=== PATIENT | female | born 1975 | race Caucasian/White ===

== ENCOUNTER 2016-05-15 14:52 | Emergency (ER) | payer BC ==
[~2016-05-15] VITALS: Ht 160 cm; Wt 101.2 kg
[~2016-05-15 14:52] MED LIST: ACET325T51 PO; DIPH28.33 TOP; FLUO20CA30 PO; GABA-336 PO; IBUP-1724 PO; METF500T4 PO; OMEP-122 PO; OXYC1TAB8 PO
[2016-05-15 14:55] VITALS: TEMP 98; Ht 160 cm; Wt 101.2 kg
--- OUTSIDE RECORDS SUMMARY | 2016-05-15 14:57 | XMS REPORT | Continuity of Care Document ---
Author Author [facility] Organization [facility] Address Unknown Phone Unavailable Care Team Providers Care Manager Games Name Role Phone LAUREN VALLE MD PP Unavailable Insurance Providers Payer Name Policy Number Subscriber Name Relationship [facility] [id number] Mariah Tinajero July [birth year] Self Problems No Known Problems or Medical conditions. Family History History Response Recorded Date/Time HX of Orthopedic Surgeries CYST REMOVED RT HAND 09/26/12 10:25pm Hx Abdominal Surgery Y HYST 09/26/12 10:25pm HX Cerebrovascular Accident N 09/26/12 10:25pm Hx Seizures N 09/26/12 10:25pm Hx Angina N 09/26/12 10:25pm Hx Congestive Heart Failure N 09/26/12 10:25pm Hx Heart Attack N 09/26/12 10:25pm Hx Hypertension N 09/26/12 10:25pm Hx Rheumatic Fever N 09/26/12 10:25pm Hx Chronic Obstructive Pulmonary Disease (COPD) N 09/26/12 10:25pm Hx Diabetes N 09/26/12 10:25pm Hx Cancer Y CERVICAL 09/26/12 10:25pm Hx MRSA N 09/26/12 10:25pm HX of Reproductive Surgeries VAG HYSTERECTOMY,BOTH OVARIES REMOVED AFTER THEY BURST 09/26/12 10:25pm HX of Throat Surgery Y [id number] 09/26/12 10:25pm Neurological concussion 05/31/12 2:13pm Social History History Response Recorded Date/Time Smoking Status Never smoker 09/26/12 10:25pm Hx Substance Use N 09/26/12 10:25pm Hx Alcohol Use 2 PER MONTH-NONE RECENTLY 09/26/12 10:25pm Allergies, Adverse Reactions, Alerts Allergen Type Severity Reaction Last Updated Procaine Allergy Unknown 05/28/12 Medications Medication Dose Units Route Sig Qty Days Ibuprofen PRN Acetaminophen/Codeine Phosphate (Tylenol #3) HS Sulfamethoxazole/Trimethoprim (Bactrim Ds) 2 Tab PO BID Green Tea [place] Extract (Green Tea) 1 Cap PO [Ph Balance Med] Immunizations Name Given Type Hx Influenza Vaccination N H Hx Pneumococcal Vaccination N H Hx Tetanus, Diptheria, Pertussis Y 2010 H Response Recorded Date/Time Status not known Unknown Results No Known Relevant Diagnostic Tests, Laboratory Data and/or Discharge Summary. 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
--- OUTSIDE RECORDS SUMMARY | 2016-05-15 14:58 | XMS REPORT | Continuity of Care Document ---
Author Author [facility] Organization [facility] Address Unknown Phone Unavailable Support Name Relationship Address Phone SAMM TANG Caregiver [address] [place] [address] Unavailable RICK LIVINGSTON MD Caregiver [address] [place] [address] Unavailable LEILA, JENNIFER A Next Of Kin [address] [place] [address] Insurance Providers Guarantor Mariah Tinajero Address [address] [place] [address] Email [email or web address] Payer [facility] Policy Number [id number] Subscriber's Name Mariah Tinajero Relationship 18 Self Group Number [id number] Advance Directives Directive Response Recorded Date/Time Advanced Directives Type None 08/31/13 8:15pm Chief Complaint and Reason for Visit Chief Complaint Skin Rash/Abscess Reason for Visit Rash Hives Problems Active Problems Medical Problem Onset Date Status Abdominal pain Unknown Acute Abdominal pain Unknown Acute Abrasion Unknown Acute Ankle sprain Unknown Acute Ankle sprain Unknown Acute Atypical chest pain Unknown Acute Cellulitis of hand Unknown Acute Contusion of forearm, right Unknown Acute Contusion of right hand including fingers Unknown Acute Contusion of right hand including fingers Unknown Acute Facial pain, acute Unknown Acute Foot sprain Unknown Acute Hand injury Unknown Acute Intercostal myalgia Unknown Acute KNEE SPRAIN Unknown Acute Laryngitis Unknown Acute Lumbar back pain Unknown Acute Lumbar back pain Unknown Acute Paraspinal muscle spasm Unknown Acute Paraspinal muscle spasm Unknown Acute Paraspinal muscle spasm Unknown Acute Sprain of elbow, right Unknown Acute Sprain of right thumb Unknown Acute Strain of calf muscle Unknown Acute Stress response Unknown Acute Wound cellulitis Unknown Acute Past Problems Medical Problem Onset Date Acute pharyngitis Unknown Contusion of right thigh Unknown Elbow contusion Unknown First degree burn of right thigh Unknown Fracture of fifth metacarpal bone of right hand Unknown Hand pain Unknown Hives Unknown Infection of mouth Unknown Injury of right little finger Unknown Lymphadenopathy of head and neck Unknown Post-op pain Unknown Rash Unknown Medications Current Home Medications Medication Dose Units Route Directions Days Qty Instructions Start Date Acetaminophen 325 Mg Tablet 650 Mg Oral Every 6 Hours as needed for Pain 12/10/15 Diphenhydramine Hcl/Zinc Acet (Benadryl Itch Stopping Crm) 28 Applic/28.3 G Cr 1 Applic Topically Three Times A Day as needed for Itching Fluoxetine Hcl (Prozac) 20 Mg Capsule 20 Mg Oral Daily 10/22/15 Gabapentin 100 Mg Capsule 200 Mg Oral Bedtime 12/16/15 Ibuprofen 200 Mg Tablet 600 Mg Oral Every 6 Hours as needed for Pain 12/10/15 Metformin Hcl 500 Mg Tablet 500 Mg Oral Twice Daily With Meals Omeprazole 20 Mg Tablet.dr 20 Mg Oral Before Breakfast 12/10/15 Oxycodone Hcl/Acetaminophen (Percocet 5-325 Mg Tablet) 5-325 Tablet 5-10 Mg Oral Every 4-6 Hours 60 Tablet 11/05/15 Past Home Medications Medication Directions Ordered Status Acetaminophen 500 Mg Tablet, 2 Tab Oral Every 8 Hours 03/12/15 Discontinued Acetaminophen (Tylenol Extra Strength) 500 Mg Tablet, 500 Mg Oral As Needed 11/04/09 Discontinued Acetaminophen/Codeine Phosphate (Tylenol #3) 1 Tab Tablet, Bedtime 12/19/10 Discontinued Azithromycin (Zithromax) 500 Mg Tablet, 1 Tab Oral Daily 10/08/15 Discontinued Cephalexin Monohydrate (Keflex) 250 Mg Capsule, 08/09/08 Discontinued Doxycycline Monohydrate (Doxycycline) 150 Mg Tablet, 150 Mg Peg Tube Twice A Day 07/10/08 Discontinued Fluoxetine Hcl 20 Mg Capsule, 20 Mg Oral Daily 08/22/15 Discontinued Green Tea [place] Extract (Green Tea) 1 Cap Capsule, 1 Cap Oral 12/15/10 Discontinued Hydrocodone Bit/Acetaminophen ([place] 5/325 Tablet) 1 Tab Tablet, 1 Tab Oral Every 4-6 Hours as needed for Pain 09/01/13 Discontinued Hydrocodone/Acetaminophen (Hydrocodon-Acetaminophen 5-325) 5-325 Tablet, 1-2 Tab Oral Every 6 Hours as needed for Pain 08/22/15 Discontinued Hydrocodone/Acetaminophen ([place] 5-325 Tablet) 1 Each Tablet, 1 Tab Oral Every 4-6 Hours as needed for Pain 11/14/13 Discontinued Ibuprofen 200 Mg Tablet, 2 Tab Oral Every 4 Hours as needed for Pain Discontinued Ibuprofen 200 Mg Capsule, 800 Mg Oral As Needed 11/04/09 Discontinued Ibuprofen 600 Mg Tablet, 600 Mg Oral Three Times A Day 07/10/08 Discontinued Metformin Hcl 500 Mg Tablet, 1000 Mg Oral Twice Daily With Meals 08/22/15 Discontinued No Home Meds , 10/08/15 Discontinued Ondansetron (Zofran Odt) 4 Mg/Udtablet Tab.rapdis, 1 Tab Sublingual As Needed 01/30/08 Discontinued Oxycodone Hcl/Acetaminophen (Oxycodone-Apap 7.5-325 Mg Tab) 1 Tab Tablet, 1 Tab Oral Q 4 H 01/30/08 Discontinued Pantoprazole Sodium 40 Mg Tablet.dr, 800 Mg Oral Before Breakfast 08/22/15 Discontinued Ph Balance Med , 12/15/10 Discontinued Phentermine Hcl 37.5 Mg Capsule, 1 Cap Oral Every Morning 08/22/15 Discontinued Promethazine Hcl (Phenergan) 25 Mg/Supp.rect Supp.rect, 1 Supp Rectally As Needed 01/30/08 Discontinued Sulfamethoxazole/Trimethoprim (Bactrim Ds) 1 Tab Tablet, 2 Tab Oral Twice A Day 12/19/10 Discontinued Social History Social History Problem Response Recorded Date/Time Onset Date Status Chewing Tobacco Status No 08/31/2013 8:26pm Not Applicable Not Applicable Hx Substance Use No 12/16/2015 10:12pm Not Applicable Not Applicable Hx Alcohol Use No 12/16/2015 10:12pm Not Applicable Not Applicable Has the pt used tobacco in the last 12 months No 11/04/2015 9:52am Not Applicable Not Applicable Tobacco Usage none 09/01/2013 12:40am Not Applicable Not Applicable Query Response Start Date Stop Date Smoking Status Never smoker Hospital Discharge Instructions No hospital discharge instructions. Plan of Care Discharge Date 12/16/15 11:44pm Disposition 01 DISCHARGED HOME, SELF-CARE Condition at Discharge Improved Instructions/Education Provided DI for Hives Prescriptions See Medication Section Referrals SAMM TANG Address: [address] [place] [address] Additional Instructions/Education Benadryl 50 mg 4 times daily as needed for rash or itching Discussed medications with your doctor later this week or early next week. Care Plan and Goals Physician Care Plan Problem: Rash/hives Goal: Follow up with primary care provider Instructions: Take medications and follow care plan as discussed/written Erythromycin ophthalmic ointment, apply 1/2 inch at the edge of the right eye lid 4 times daily for one week Return or see your primary physician for any worsening, Functional Status No functional status results. Allergies, Adverse Reactions, Alerts Allergen Type Severity Reaction Status Last Updated Procaine Adverse Reaction Mild WEARS OFF SLOW Active 12/16/15 Immunizations Query Response on File Recorded Date/Time Hx Influenza Vaccination No 11/04/15 9:52am Hx Pneumococcal Vaccination No 11/04/15 9:52am Hx Tetanus, Diptheria, Pertussis Y 201010/16/14 8:48pm Hx Influenza Vaccination No 11/04/15 9:52am Hx Tetanus, Diptheria, Pertussis Y 201010/16/14 8:48pm Hx Tetanus Toxoid Vaccination NOT ASSESSED, NO OPEN AREAS 10/16/14 8:48pm Influenza Vaccine Hx DOESN'T RECEIVE 12/16/15 10:12pm Tdap Vaccine Hx NO BROKEN SKIN 12/10/15 2:43pm Vital Signs Acute Vital Signs Vital Response Date/Time Temperature (Fahrenheit) 97.1 deg F (96.8 - 99.1) 12/10/2015 4:06pm Temperature (Calculated Celsius) 36.63318 degrees C (36.0 - 37.3) 12/10/2015 4:06pm Temperature Source Oral 11/05/2015 7:33am Pulse Rate (adult) 72 bpm (60 - 100) 12/10/2015 4:06pm Respiratory Rate 16 breaths/min (10 - 20) 12/10/2015 4:06pm O2 Sat by Pulse Oximetry 98 % (90 - 100) 12/10/2015 4:06pm Oxygen Delivery Method Room Air 11/05/2015 7:33am Oxygen Delivery Method Room Air 11/04/2015 3:35pm Blood Pressure 128/76 mm Hg 12/10/2015 4:06pm Blood Pressure Source Automatic Cuff 11/05/2015 7:33am Height (Feet) 5 feet 12/10/2015 2:28pm Height (Inches) 3.00 inches 12/10/2015 2:28pm Weight (Kilograms) 92.500 kg 12/10/2015 2:28pm Body Mass Index (BMI) 36.0 12/10/2015 2:28pm Results Laboratory Results Test Name Result Units Flags Reference Collection Date/Time Result Date/ Time Comments Group A Streptococcus Screen NEGATIVE NEGATIVE 10/08/2015 10:59pm 11:10pm Strep culture confirmation to follow Microbiology Results Procedure Source Organism/Result Collection Date/Time Result Date/Time Result Status Group A Streptococcus Culture Throat NO GROUP A STREP ISOLATED 10/08/2015 11:10pm 10/11/2015 6:14am Final Procedures Procedure Status Date Provider(s) CULTURE SCREEN ONLY Completed 10/08/15 STREP A AG IA Completed 10/08/15 THER/PROPH/DIAG INJ SC/IM Completed 10/08/15 EMERGENCY DEPT VISIT Completed 10/08/15 786494"INJECTION, METHYLPREDNISOLONE ACETATE, 80 MG" Completed 10/08/15 EMERGENCY DEPT VISIT Completed 10/21/15 APPLY FOREARM SPLINT Completed 11/01/15 RICK LIVINGSTON MD X-RAY EXAM OF HAND Completed 11/01/15 EMERGENCY DEPT VISIT Completed 11/01/15 TREAT METACARPAL FRACTURE Completed 11/04/15 JUSTIN HUTCHISON MD X-RAY EXAM OF HAND Completed 11/04/15 X-RAY EXAM OF HAND Completed 11/04/15 FLUOROSCOPE EXAMINATION Completed 11/04/15 366856"16 SQ. IN. OR LESS, WITHOUT ADHESIVE BORDER, EACH ERIK Completed 669995"INJECTION, HYDROMORPHONE, UP TO 4 MG" Completed 11/04/15 850200"INJECTION, LORAZEPAM, 2 MG" Completed 11/04/15 PROPOFOL INJ 500 MG/50ML Completed 11/04/15 515995"INJECTION, METOCLOPRAMIDE HCL, UP TO 10 MG" Completed 11/04/15 653786"INJECTION, FENTANYL CITRATE, 0.1 MG" Completed 11/04/15 919473"INJECTION, FENTANYL CITRATE, 0.1 MG" Completed 11/04/15 021020"INFUSION, NORMAL SALINE SOLUTION , 1000 CC" Completed 11/04/15 165128"RINGERS LACTATE INFUSION, UP TO 1000 CC" Completed 11/04/15 APPLY FOREARM SPLINT Completed 11/12/15 MARY MÉNDEZ MD EMERGENCY DEPT VISIT Completed 11/12/15 X-RAY EXAM OF ELBOW Completed 11/25/15 EMERGENCY DEPT VISIT Completed 11/25/15 X-RAY EXAM OF HAND Completed 12/10/15 EMERGENCY DEPT VISIT Completed 12/10/15 Encounters Encounter Location Arrival/Admit Date Discharge/Depart Date Attending Provider Departed Emergency Room [facility] 12/16/15 8:59pm 12/16/15 11: 44pm RICK LIVINGSTON MD Departed Emergency Room [facility] 12/10/15 2:20pm 12/10/15 4: 03pm SHAUN MONDRAGON MD Departed Emergency Room [facility] 11/25/15 10:00pm 11/25/15 11: 15pm JUNEEVE DO Departed Emergency Room [facility] 11/12/15 12:06am 11/12/15 1: 08am MARY MÉNDEZ MD Departed [facility] Day Care [facility] 11/04/15 8:59am 11/05/15 12 :00pm JUSTIN HUTCHISON MD Departed Emergency Room [facility] 11/01/15 10:07pm 11/02/15 12: 05am RICK LIVINGSTON MD Departed Emergency Room [facility] 10/21/15 11:43pm 10/22/15 12: 50am RICK LIVINGSTON MD Departed Emergency Room [facility] 10/08/15 9:45pm 10/08/15 11: 46pm MARY MÉNDEZ MD Recent Diagnosis
--- OUTSIDE RECORDS SUMMARY | 2016-05-15 14:58 | XMS REPORT | Continuity of Care Document ---
Author Author [facility] Organization [facility] Address Unknown Phone Unavailable Support Name Relationship Address Phone HIRA MEJIA MD Caregiver [address] [place] [phone] MARY MÉNDEZ MD Caregiver [address] [place] [address] [place] [phone] JENNIFER DEE Next Of Kin [address] [place] [address] Insurance Providers Payer Name Policy Number Subscriber Name Relationship [facility] [id number] Mariah Tinajero 18 Self Advance Directives Directive Response Recorded Date/Time Advanced Directives Type None 08/31/13 8:15pm Problems Medical Problems Problem Onset Date Status KNEE SPRAIN Unknown Active Abdominal pain Unknown Active Abdominal pain Unknown Active Contusion of right hand including fingers Unknown Active Contusion of right hand including fingers Unknown Active Medications Medication Dose Route Sig Days/Qty Instructions Order Date Discontinued Date Status Oxycodone Hcl/Acetaminophen 1 Tab PO Q 4 H 01/30/08 04/14/08 Discontinued Promethazine Hcl 1 Supp RECTALLY NEEDED 01/30/08 04/14/08 Discontinued Ondansetron 1 Tab SL NEEDED 01/30/08 04/14/08 Discontinued Doxycycline Monohydrate 150 Mg PEG TWICE A DAY 07/10/08 08/02/08 Discontinued Ibuprofen 600 Mg PO THREE TIMES A DAY 07/10/08 10/03/09 Discontinued Acetaminophen 500 Mg PO NEEDED 11/04/09 05/11/10 Discontinued Cephalexin Monohydrate 08/09/08 10/03/09 Discontinued Ibuprofen 800 Mg PO NEEDED 11/04/09 05/11/10 Discontinued [Ph Balance Med] 12/15/10 05/28/12 Discontinued Green Tea [place] Extract 1 Cap PO 12/15/10 05/28/12 Discontinued Sulfamethoxazole/Trimethoprim 2 Tab PO TWICE A DAY 12/19/10 Discontinued Acetaminophen/Codeine Phosphate BEDTIME 12/19/10 05/28/12 Discontinued Ibuprofen PRN 09/26/12 Active Omeprazole Mg PO BEFORE BREAKFAST PRN INDIGESTION 08/31/13 Active Hydrocodone Bit/Acetaminophen 1 Tab PO EVERY 4-6 HOURS PRN PAIN 10 Qty 09/01/13 Active Prochlorperazine Maleate 10 Mg PO Every 8 Hours PRN NAUSEA 15 Qty 09/01 Active Tramadol HCl 1 Tab PO Every 6 Hours For PAIN 30 Qty 09/14/13 Active Social History Social History Problem Response Recorded Date/Time Smoking Status Never smoker 08/31/2013 8:26pm Chewing Tobacco Status No 08/31/2013 8:26pm Hx Substance Use No 09/14/2013 1:36am Hx Alcohol Use Y 2 PER MONTH-NONE RECENTLY 09/14/2013 1:36am Query Response Start Date Stop Date Smoking Status Never smoker Hospital Discharge Instructions No hospital discharge instructions. Plan of Care No plan of care. Functional Status Query Response Date Recorded Physical Hygiene Self September 14, 2013 1:36am Disabilities None August 31, 2013 8:26pm Devices Used None September 14, 2013 1:36am Dressing Self September 14, 2013 1:36am Ambulation Self September 14, 2013 1:36am Diet Self September 14, 2013 1:36am Mental Status Alert September 01, 2013 1:14am Disabilities None August 31, 2013 8:26pm Devices Used None September 14, 2013 1:36am Physical Hygiene Self September 14, 2013 1:36am Dressing Self September 14, 2013 1:36am Ambulation Self September 14, 2013 1:36am Diet Self September 14, 2013 1:36am Allergies, Adverse Reactions, Alerts Allergen Type Severity Reaction Status Last Updated Procaine Allergy Unknown Active 09/14/13 Immunizations Name Given Type Hx Influenza Vaccination No Historical Hx Pneumococcal Vaccination No Historical Hx Tetanus, Diptheria, Pertussis Y 2010 Historical Hx Influenza Vaccination No Historical Hx Tetanus, Diptheria, Pertussis Y 2010 Historical Hx Tetanus Toxoid Vaccination NOT ASSESSED, NO OPEN AREAS Historical Vital Signs Acute Vital Signs Vital Response Date/Time Temperature (Fahrenheit) 97.8 deg F (96.8 - 99.1) Temperature (Calculated Celsius) 36.35430 degrees C (36.0 - 37.3) Pulse Rate (adult) 80 bpm (60 - 100) Respiratory Rate 16 breaths/min (10 - 20) O2 Sat by Pulse Oximetry 97 % (90 - 100) Blood Pressure 128/78 mm Hg Height 5 ft 3 in Weight 232 lb Body Mass Index 41.0 kg/m^2 Results Test Source Date Result Interp. Ref. Range Comments Alanine Aminotransferase (ALT/SGPT) August 31, 2013 8:38pm 32 U/L N 9-52 Albumin August 31, 2013 8:38pm 3.9 G/DL N 3.5-5.0 Albumin/Globulin Ratio August 31, 2013 8:38pm 1.3 RATIO N 1.1-2.2 Alkaline Phosphatase August 31, 2013 8:38pm 153 U/L H 38-126 Amylase Level August 31, 2013 8:38pm 52 U/L N 30-110 Anion Gap August 31, 2013 8:38pm 12 MEQ/L N 5-15 Aspartate Amino Transf (AST/SGOT) August 31, 2013 8:38pm 20 U/L N 14-36 BUN/Creatinine Ratio August 31, 2013 8:38pm 19 RATIO N 6-26 Basophils # (Auto) August 31, 2013 8:38pm 0.0 T/MM3 N 0-0.2 Basophils (%) (Auto) August 31, 2013 8:38pm 0.4 % N 0-2 Blood Urea Nitrogen August 31, 2013 8:38pm 15.0 MG/DL N 7-17 Calcium Level August 31, 2013 8:38pm 9.3 MG/DL N 8.4-10.2 Calculated Osmolality August 31, 2013 8:38pm 282 MOSM/KG H 261-280 Carbon Dioxide Level August 31, 2013 8:38pm 26 MEQ/L N 22-30 Chloride Level August 31, 2013 8:38pm 108 MEQ/L H 98-107 Cholesterol Level December 21, 2010 8:20am 176 MG/DL N 132-199 Cholesterol/HDL Ratio December 21, 2010 8:20am 3.6 RATIO N 0-4.0 Conjugated Bilirubin February 13, 2010 10:50pm 0.00 MG/DL N 0.00-0.30 Creatinine August 31, 2013 8:38pm 0.8 MG/DL N 0.7-1.2 Eosinophils # (Auto) August 31, 2013 8:38pm 0.4 T/MM3 N 0-0.5 Eosinophils (%) (Auto) August 31, 2013 8:38pm 3.5 % N 0-4 Erythrocyte Sedimentation Rate December 19, 2010 12:25pm 13 MM/HR N 0-20 Globulin August 31, 2013 8:38pm 2.9 G/DL N 2.4-3.6 Glucose Level August 31, 2013 8:38pm 106 MG/DL N 65-110 Group A Streptococcus Screen November 14, 2007 9:37pm Negative - Strep culture confirmation to follow Hematocrit August 31, 2013 8:38pm 41.1 % N 36-46 Hemoglobin August 31, 2013 8:38pm 13.6 GM/DL N 12-16 LDL Cholesterol, Calculated December 21, 2010 8:20am 114.6 N 66-159 Lipase August 31, 2013 8:38pm 106 U/L N 23-300 Lymphocytes # (Auto) August 31, 2013 8:38pm 3.8 T/MM3 N 1-4.8 Lymphocytes (%) (Auto) August 31, 2013 8:38pm 37.7 % N 23-45 Mean Corpuscular Hemoglobin August 31, 2013 8:38pm 28.7 UUG N 26-34 Mean Corpuscular Hemoglobin Concent August 31, 2013 8:38pm 33.1 GM/DL N 31 -37 Mean Corpuscular Volume August 31, 2013 8:38pm 86.7 UM3 N 80-100 Mean Platelet Volume August 31, 2013 8:38pm 9.4 UM3 N 9.4-12.4 Monocytes # (Auto) August 31, 2013 8:38pm 0.7 T/MM3 N 0-0.8 Monocytes (%) (Auto) August 31, 2013 8:38pm 6.8 % N 0-9.0 Monoscreen February 13, 2010 10:50pm Negative - Neutrophils # (Auto) August 31, 2013 8:38pm 5.2 T/MM3 N 1.8-7.7 Neutrophils (%) (Auto) August 31, 2013 8:38pm 51.5 % N 33-66 Platelet Count August 31, 2013 8:38pm 392 T/MM3 N 130-400 Potassium Level August 31, 2013 8:38pm 3.4 MEQ/L L 3.6-5 RDW Standard Deviation August 31, 2013 8:38pm 42.3 FL N 36.9-50.2 Red Blood Count August 31, 2013 8:38pm 4.74 M/MM3 N 4.00-5.20 Sodium Level August 31, 2013 8:38pm 146 MEQ/L H 134-144 Thyroid Stimulating Hormone (TSH) December 21, 2010 8:20am 2.07 MIU/L N 0.47-4.68 Total Bilirubin August 31, 2013 8:38pm < 0.10 MG/DL L 0.20-1.30 Total Protein August 31, 2013 8:38pm 6.8 G/DL N 6.3-8.2 Triglycerides Level December 21, 2010 8:20am 62 MG/DL N 35-135 Troponin I April 14, 2008 11:52pm 0.008 ng/ml N 0-0.12 Unconjugated Bilirubin February 13, 2010 10:50pm 0.15 MG/DL N 0.00-1.10 Urine Bacteria July 25, 2008 10:44pm 2+ - Has specimen been collected /obtained? Y Urine Bilirubin August 31, 2013 8:50pm Negative - Has specimen been collected/obtained? Y Urine Blood August 31, 2013 8:50pm Trace-intact H - Has specimen been collected/obtained? Y Urine Collection Type August 31, 2013 8:50pm Voided-not cc-midstr - Has specimen been collected/obtained? Y Urine Color August 31, 2013 8:50pm Yellow - Has specimen been collected /obtained? Y Urine Culture Indicated July 25, 2008 10:44pm Cult set up - Has specimen been collected/obtained? Y Urine Glucose (UA) August 31, 2013 8:50pm Negative - Has specimen been collected/obtained? Y Urine Ketones August 31, 2013 8:50pm Negative - Has specimen been collected/obtained? Y Urine Leukocyte Esterase August 31, 2013 8:50pm Negative - Has specimen been collected/obtained? Y Urine Nitrite August 31, 2013 8:50pm Negative - Has specimen been collected/obtained? Y Urine Protein August 31, 2013 8:50pm Negative - Has specimen been collected/obtained? Y Urine RBC July 25, 2008 10:44pm 50-200 /HPF - Has specimen been collected/obtained? Y Urine Specific [place] August 31, 2013 8:50pm >=1.030 H - Has specimen been collected/obtained? Y Urine Turbidity August 31, 2013 8:50pm Sl cloudy - Has specimen been collected/obtained? Y Urine Urobilinogen August 31, 2013 8:50pm 0.2 EU/DL - Has specimen been collected/obtained? Y Urine WBC July 25, 2008 10:44pm 50-200 /HPF - Has specimen been collected/obtained? Y Urine pH August 31, 2013 8:50pm 5.5 - Has specimen been collected/ obtained? Y VLDL Cholesterol December 21, 2010 8:20am 12.4 MG/DL N 0-28 White Blood Count August 31, 2013 8:38pm 10.0 T/MM3 N 4.5-11.0 Chemistry Specimen Hemolysis August 31, 2013 8:38pm < 15 0-25 0-25: No Hemolysis.26-70: Slight Hemolysis - can falsely elevate K and Urine Protein. 71-285: Moderate Hemolysis - can falsely elevate K, Troponin I, CA 19-9, PTH, CSF GLucose, and Urine Protein, and can falsely decrease Phenytoin. 286-999: Gross Hemolysis - can falsely elevate K, Troponin I, CA 19-9, PTH, CSF Glucose, and Urine Protine, and can falsely decrease Phenytoin. Recommend specimen recollection. Urinalysis Comment August 31, 2013 8:50pm Microscopic not ind. - Has specimen been collected/obtained? Y Lab Scanned Report March 21, 2013 9:47pm LAB TEST FORM REQUEST [id number] - EKG July 10, 2008 12:57pm Complete - HDL Cholesterol Direct December 21, 2010 8:20am 49 MG/DL N 40-60 Turbidity August 31, 2013 8:38pm < 20 0-20 Glomerular Filtration Rate Calc August 31, 2013 8:38pm 81 - Immature Granulocyte # (Auto) August 31, 2013 8:38pm 0.01 T/MM3 N 0.00- 0.03 Immature Granulocyte % (Auto) August 31, 2013 8:38pm 0.1 % N 0.0-0.5 Icterus Index August 31, 2013 8:38pm < 2 0-7 Urine Microscopic Not Indicated February 13, 2010 11:20pm Not indicated - Has specimen been collected/obtained? Y Group A Streptococcus Culture Throat November 14, 2007 9:56pm Urine Culture Urine, Clean Catch Voided July 25, 2008 11:14pm Escherichia Coli Name: MARIAH TINAJERO Unit #: [id number] : 1975 Sex: F Loc / Svc: ED DOS: 08/31/13 Signed Report #: [id number] DIAGNOSTIC IMAGING REPORT TYPE OF EXAM: ABDOMEN ACUTE (INC. CHEST) Dictated By: SAM ECHEVERRIA MD INDICATION: ITS.REASON: abdominal pain ^abdominal pain COMPARISON: none. ABDOMEN ACUTE (INC. CHEST): Negative findings on the CXR. Abdomen images have nonspecific bowel gas pattern, but no evidence of a bowel obstruction. There surgical clips in RUQ. Minor pelvic calcifications are consistent with phleboliths. IMPRESSION: No evidence of acute disease. . Procedures Procedure Status Date Provider(s) THER/PROPH/DIAG INJ IV PUSH completed 08/31/13 HYDRATE IV INFUSION ADD-ON completed 08/31/13 TX/PRO/DX INJ NEW DRUG ADDON completed 08/31/13 TX/PRO/DX INJ NEW DRUG ADDON completed 08/31/13 TX/PRO/DX INJ NEW DRUG ADDON completed 08/31/13 TX/PRO/DX INJ NEW DRUG ADDON completed 08/31/13 TX/PRO/DX INJ SAME DRUG MARINE REPORTER completed 08/31/13 TX/PRO/DX INJ SAME DRUG MARINE REPORTER completed 08/31/13 TX/PRO/DX INJ SAME DRUG MARINE REPORTER completed 08/31/13 Encounters Encounter Location Date/Time Registered Emergency Room [facility] 09/14/13 1:20am Departed Emergency Room [facility] 08/31/13 8:07pm Recent Diagnosis
--- OUTSIDE RECORDS SUMMARY | 2016-05-15 14:59 | XMS REPORT | Continuity of Care Document ---
Author Author [facility] Organization [facility] Address Unknown Phone Unavailable Support Name Relationship Address Phone HIRA MEJIA MD Caregiver [address] [place] [phone] MARY MÉNDEZ MD Caregiver [address] [place] [address] [place] [phone] JENNIFER DEE Next Of Kin [address] [place] [address] Insurance Providers Payer Name Policy Number Subscriber Name Relationship [facility] [id number] Mariah Tinajero 18 Self Advance Directives Directive Response Recorded Date/Time Advanced Directives Type None 08/31/13 8:15pm Problems Medical Problems Problem Onset Date Status KNEE SPRAIN Unknown Active Abdominal pain Unknown Active Abdominal pain Unknown Active Contusion of right hand including fingers Unknown Active Contusion of right hand including fingers Unknown Active Ankle sprain Unknown Active Abrasion Unknown Active Ankle sprain Unknown Active Medications Medication Dose Route Sig [...] Balance Med] 12/15/10 05/28/12 Discontinued Green Tea [place] Extract 1 Cap PO 12/15/10 05/28/12 Discontinued [...] Hours For PAIN 30 Qty 09/14/13 Active Hydrocodone/Acetaminophen 1-2 Tab PO Every 6 Hours PRN PAIN 10 Qty Active Cephalexin 1 Cap PO FOUR TIMES DAILY 20 Qty 11/12/13 Active Social History Social History Problem Response [...] 1:36am Disabilities None August 31, 2013 8:26pm Mental Status Alert September 01, 2013 1:14am Disabilities None August 31, 2013 8:26pm Physical Hygiene Self September 14, 2013 1:36am Allergies, Adverse Reactions, Alerts Allergen Type Severity Reaction Status Last Updated Procaine Allergy Unknown Active 11/12/13 Immunizations Name Given Type Hx Influenza Vaccination No Historical Hx Pneumococcal Vaccination No Historical Hx Tetanus, Diptheria, Pertussis Y 2010 Historical Hx Influenza Vaccination No Historical Hx Tetanus, Diptheria, Pertussis Y 2010 Historical Hx Tetanus Toxoid Vaccination NOT ASSESSED, NO OPEN AREAS Historical Vital Signs Acute Vital Signs Vital Response Date/Time Temperature (Fahrenheit) 99.1 deg F (96.8 - 99.1) Temperature (Calculated Celsius) 37.21514 degrees C (36.0 - 37.3) Pulse Rate (adult) 80 bpm (60 - 100) Respiratory Rate 18 breaths/min (10 - 20) O2 Sat by Pulse Oximetry 98 % (90 - 100) Blood Pressure 135/85 mm Hg Height 5 ft 3 in Weight 238 lb Body Mass Index 42.0 kg/m^2 Results Test Source Date Result Interp. [...] Has specimen been collected/obtained? Y Urine Specific [place] August 31, 2013 8:50pm >=1.030 H - [...] 21, 2013 9:47pm LAB TEST FORM REQUEST [id number] - EKG July 10, 2008 12:57pm Complete [...] Escherichia Coli Name: MARIAH TINAJERO Unit #: [id number] : 1975 Sex: F Loc / Svc: ED DOS: 09/14/13 Signed Report #: [id number] DIAGNOSTIC IMAGING REPORT TYPE OF EXAM: HAND RIGHT 3 VIEW Dictated By: CATE MURRY MD INDICATION: ITS.REASON: HAND/THUMB SMASHED BETWEEN TAILGATE AND CHAIR HAND RIGHT 3 VIEW: No fracture or dislocation. No bony or soft tissue abnormalities. . Procedures Procedure Status Date Provider(s) THER/PROPH/DIAG INJ IV PUSH completed 08/31/13 HYDRATE IV INFUSION ADD-ON completed 08/31/13 TX/PRO/DX INJ NEW DRUG ADDON completed 08/31/13 TX/PRO/DX INJ NEW DRUG ADDON completed 08/31/13 TX/PRO/DX INJ NEW DRUG ADDON completed 08/31/13 TX/PRO/DX INJ NEW DRUG ADDON completed 08/31/13 TX/PRO/DX INJ SAME DRUG CARD SETTER completed 08/31/13 TX/PRO/DX INJ SAME DRUG CARD SETTER completed 08/31/13 TX/PRO/DX INJ SAME DRUG CARD SETTER completed 08/31/13 THER/PROPH/DIAG INJ SC/IM completed 09/14/13 APPLICATION OF FINGER SPLINT completed 09/14/13 MARY MÉNDEZ MD Encounters Encounter Location Date/Time Departed Emergency Room [facility] 11/12/13 5:12pm Departed Emergency Room [facility] 09/14/13 1:20am Departed Emergency Room [facility] 08/31/13 8:07pm Recent Diagnosis
--- OUTSIDE RECORDS SUMMARY | 2016-05-15 14:59 | XMS REPORT | Continuity of Care Document ---
Author Author [facility] Organization [facility] Address Unknown Phone Unavailable Support Name Relationship Address Phone ELBA SARKAR DO Caregiver [facility] [address] [place], [place] [id number] HIRA MEJIA MD Caregiver [address] [place] [address] JENNIFER DEE Next Of Kin [address] [place] [address] Insurance Providers Payer Name Policy Number Subscriber Name Relationship [facility] [id number] Mariah Tinajero 18 Self Advance Directives Directive Response Recorded Date/Time Advanced Directives Type None 08/31/13 8:15pm Problems Medical Problems Problem Onset Date Status KNEE SPRAIN Unknown Active Abdominal pain Unknown Active Abdominal pain Unknown Active Contusion of right hand including fingers Unknown Active Contusion of right hand including fingers Unknown Active Ankle sprain Unknown Active Abrasion Unknown Active Ankle sprain Unknown Active Wound cellulitis Unknown Active Medications Medication Dose Route Sig [...] Balance Med] 12/15/10 05/28/12 Discontinued Green Tea [place] Extract 1 Cap PO 12/15/10 05/28/12 Discontinued Sulfamethoxazole/Trimethoprim 2 Tab PO TWICE A DAY 12/19/10 Discontinued Acetaminophen/Codeine Phosphate BEDTIME 12/19/10 05/28/12 Discontinued Ibuprofen 800 Mg PO PRN 09/26/12 Active Omeprazole Mg PO BEFORE BREAKFAST PRN INDIGESTION 08/31/13 Active Hydrocodone Bit/Acetaminophen 1 Tab PO EVERY 4-6 HOURS PRN PAIN 10 Qty 09/01/13 11/14/13 Discontinued Cephalexin 1 Cap PO FOUR TIMES DAILY 20 Qty 11/12/13 Active Hydrocodone/Acetaminophen 1 Tab PO EVERY 4-6 HOURS PRN PAIN 10 Qty 11/14/13 Discontinued Ibuprofen 1 Tab PO Every 8 Hours PRN PAIN 20 Qty 11/14/13 Active Oxycodone HCl/Acetaminophen 5 Mg PO FOUR TIMES DAILY For PAIN 12 Qty Take 1 tablet, by mouth, 4 times a day. 11/14/13 Active Social History Social History Problem Response Recorded Date/Time Smoking Status Never smoker 08/31/2013 8:26pm Chewing Tobacco Status No 08/31/2013 8:26pm Hx Substance Use No 11/14/2013 8:35pm Hx Alcohol Use Y 2 PER MONTH-NONE RECENTLY 11/14/2013 8:35pm Query Response Start Date Stop Date Smoking Status Never smoker Hospital Discharge Instructions No hospital discharge instructions. Plan of Care No plan of care. Functional Status Query Response Date Recorded Physical Hygiene Self November 14, 2013 8:35pm Disabilities None August 31, 2013 8:26pm Devices Used None November 14, 2013 8:35pm Dressing Self November 14, 2013 8:35pm Ambulation Self November 14, 2013 8:35pm Diet Self November 14, 2013 8:35pm Mental Status Alert September 01, 2013 1:14am Disabilities None August 31, 2013 8:26pm Devices Used None November 14, 2013 8:35pm Physical Hygiene Self November 14, 2013 8:35pm Dressing Self November 14, 2013 8:35pm Ambulation Self November 14, 2013 8:35pm Diet Self November 14, 2013 8:35pm Allergies, Adverse Reactions, Alerts Allergen Type Severity Reaction Status Last Updated Procaine Adverse Reaction Mild WEARS OFF SLOW Active 11/14/13 Immunizations Name Given Type Hx Influenza Vaccination No Historical Hx Pneumococcal Vaccination No Historical Hx Tetanus, Diptheria, Pertussis Y 2010 Historical Hx Influenza Vaccination No Historical Hx Tetanus, Diptheria, Pertussis Y 2010 Historical Hx Tetanus Toxoid Vaccination NOT ASSESSED, NO OPEN AREAS Historical Vital Signs Acute Vital Signs Vital Response Date/Time Temperature (Fahrenheit) 96.9 deg F (96.8 - 99.1) Temperature (Calculated Celsius) 36.21402 degrees C (36.0 - 37.3) Pulse Rate (adult) 75 bpm (60 - 100) Respiratory Rate 16 breaths/min (10 - 20) O2 Sat by Pulse Oximetry 97 % (90 - 100) Blood Pressure 136/79 mm Hg Height 5 ft 3 in Weight 234 lb Body Mass Index 41.0 kg/m^2 Results Test Source Date Result Interp. Ref. Range Comments Alanine Aminotransferase (ALT/SGPT) November 14, 2013 8:59pm 29 U/L N 9 -52 Albumin November 14, 2013 8:59pm 4.0 G/DL N 3.5-5.0 Albumin/Globulin Ratio November 14, 2013 8:59pm 1.4 RATIO N 1.1-2.2 Alkaline Phosphatase November 14, 2013 8:59pm 170 U/L H 38-126 Amylase Level August 31, 2013 8:38pm 52 U/L N 30-110 Anion Gap November 14, 2013 8:59pm 14 MEQ/L N 5-15 Aspartate Amino Transf (AST/SGOT) November 14, 2013 8:59pm 20 U/L N 14- 36 BUN/Creatinine Ratio November 14, 2013 8:59pm 12 RATIO N 6-26 Basophils # (Auto) November 14, 2013 8:59pm 0.0 T/MM3 N 0-0.2 Basophils (%) (Auto) November 14, 2013 8:59pm 0.3 % N 0-2 Blood Urea Nitrogen November 14, 2013 8:59pm 12.0 MG/DL N 7-17 Calcium Level November 14, 2013 8:59pm 9.6 MG/DL N 8.4-10.2 Calculated Osmolality November 14, 2013 8:59pm 281 MOSM/KG H 261-280 Carbon Dioxide Level November 14, 2013 8:59pm 28 MEQ/L N 22-30 Chloride Level November 14, 2013 8:59pm 104 MEQ/L N 98-107 Cholesterol Level December 21, 2010 8:20am 176 MG/DL N 132-199 Cholesterol/HDL Ratio December 21, 2010 8:20am 3.6 RATIO N 0-4.0 Conjugated Bilirubin February 13, 2010 10:50pm 0.00 MG/DL N 0.00-0.30 Creatinine November 14, 2013 8:59pm 1.0 MG/DL N 0.7-1.2 D-Dimer November 14, 2013 8:59pm < 150 NG/ML 0-224 <224 NG/ML= PRESUMPTIVE NEGATIVE FOR PE OR DVT>224 NG/ML=ADDITIONAL EVALUATION FOR PE OR DVT RECOMMENDED Eosinophils # (Auto) November 14, 2013 8:59pm 0.3 T/MM3 N 0-0.5 Eosinophils (%) (Auto) November 14, 2013 8:59pm 2.6 % N 0-4 Erythrocyte Sedimentation Rate December 19, 2010 12:25pm 13 MM/HR N 0-20 Globulin November 14, 2013 8:59pm 2.8 G/DL N 2.4-3.6 Glucose Level November 14, 2013 8:59pm 92 MG/DL N 65-110 Group A Streptococcus Screen November 14, 2007 9:37pm Negative - Strep culture confirmation to follow Hematocrit November 14, 2013 8:59pm 40.9 % N 36-46 Hemoglobin November 14, 2013 8:59pm 13.6 GM/DL N 12-16 LDL Cholesterol, Calculated December 21, 2010 8:20am 114.6 N 66-159 Lipase August 31, 2013 8:38pm 106 U/L N 23-300 Lymphocytes # (Auto) November 14, 2013 8:59pm 3.6 T/MM3 N 1-4.8 Lymphocytes (%) (Auto) November 14, 2013 8:59pm 30.5 % N 23-45 Mean Corpuscular Hemoglobin November 14, 2013 8:59pm 28.9 UUG N 26-34 Mean Corpuscular Hemoglobin Concent November 14, 2013 8:59pm 33.3 GM/DL N 31-37 Mean Corpuscular Volume November 14, 2013 8:59pm 87.0 UM3 N 80-100 Mean Platelet Volume November 14, 2013 8:59pm 9.8 UM3 N 9.4-12.4 Monocytes # (Auto) November 14, 2013 8:59pm 0.9 T/MM3 H 0-0.8 Monocytes (%) (Auto) November 14, 2013 8:59pm 7.6 % N 0-9.0 Monoscreen February 13, 2010 10:50pm Negative - Neutrophils # (Auto) November 14, 2013 8:59pm 6.9 T/MM3 N 1.8-7.7 Neutrophils (%) (Auto) November 14, 2013 8:59pm 58.8 % N 33-66 Platelet Count November 14, 2013 8:59pm 432 T/MM3 H 130-400 Potassium Level November 14, 2013 8:59pm 3.8 MEQ/L N 3.6-5 RDW Standard Deviation November 14, 2013 8:59pm 40.7 FL N 36.9-50.2 Red Blood Count November 14, 2013 8:59pm 4.70 M/MM3 N 4.00-5.20 Sodium Level November 14, 2013 8:59pm 146 MEQ/L H 134-144 Thyroid Stimulating Hormone (TSH) December 21, 2010 8:20am 2.07 MIU/L N 0.47-4.68 Total Bilirubin November 14, 2013 8:59pm 0.30 MG/DL N 0.20-1.30 Total Protein November 14, 2013 8:59pm 6.8 G/DL N 6.3-8.2 Triglycerides Level December [...] Has specimen been collected/obtained? Y Urine Specific [place] August 31, 2013 8:50pm >=1.030 H - [...] 12.4 MG/DL N 0-28 White Blood Count November 14, 2013 8:59pm 11.8 T/MM3 H 4.5-11.0 Chemistry Specimen Hemolysis November 14, 2013 8:59pm < 15 0-25 0-25 : No Hemolysis.26-70: Slight Hemolysis - can falsely [...] 21, 2013 9:47pm LAB TEST FORM REQUEST [id number] - EKG July 10, 2008 12:57pm Complete - HDL Cholesterol Direct December 21, 2010 8:20am 49 MG/DL N 40-60 Turbidity November 14, 2013 8:59pm < 20 0-20 Glomerular Filtration Rate Calc November 14, 2013 8:59pm 62 - Immature Granulocyte # (Auto) November 14, 2013 8:59pm 0.02 T/MM3 N 0.00-0.03 Immature Granulocyte % (Auto) November 14, 2013 8:59pm 0.2 % N 0.0-0.5 Icterus Index November 14, 2013 8:59pm < 2 0-7 Urine Microscopic Not Indicated February 13, 2010 11:20pm Not indicated - Has specimen been collected/obtained? Y Group A Streptococcus Culture Throat November 14, 2007 9:56pm Urine Culture Urine, Clean Catch Voided July 25, 2008 11:14pm Escherichia Coli Name: MARIAH TINAJERO Unit #: [id number] : 1975 Sex: F Loc / Svc: ED DOS: 11/12/13 Signed Report #: [id number] DIAGNOSTIC IMAGING REPORT TYPE OF EXAM: FOOT LEFT 3 VIEWS Dictated By: CEFERINO GUERRERO MD Indication: ITS.REASON: pain; patient caught in rope and pulled by dog Comparison: None Findings: There is no acute fracture, dislocation or malalignment identified. Impression: No acute osseous abnormality. . Procedures Procedure Status Date Provider(s) THER/PROPH/DIAG INJ IV PUSH completed 08/31/13 HYDRATE IV INFUSION ADD-ON completed 08/31/13 TX/PRO/DX INJ NEW DRUG ADDON completed 08/31/13 TX/PRO/DX INJ NEW DRUG ADDON completed 08/31/13 TX/PRO/DX INJ NEW DRUG ADDON completed 08/31/13 TX/PRO/DX INJ NEW DRUG ADDON completed 08/31/13 TX/PRO/DX INJ SAME DRUG CIRCUS RIDER completed 08/31/13 TX/PRO/DX INJ SAME DRUG CIRCUS RIDER completed 08/31/13 TX/PRO/DX INJ SAME DRUG CIRCUS RIDER completed 08/31/13 THER/PROPH/DIAG INJ SC/IM completed 09/14/13 APPLICATION OF FINGER SPLINT completed 09/14/13 MARY MÉNDEZ MD Encounters Encounter Location Date/Time Departed Emergency Room [facility] 11/14/13 7:33pm Departed Emergency Room [facility] 11/12/13 5:12pm Departed Emergency Room [facility] 09/14/13 1:20am Departed Emergency Room [facility] 08/31/13 8:07pm Recent Diagnosis
--- OUTSIDE RECORDS SUMMARY | 2016-05-15 14:59 | XMS REPORT | Continuity of Care Document ---
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 Family History History Response Recorded Date/Time HX of Orthopedic Surgeries CYST REMOVED RT HAND 08/21/12 11:06pm Hx Abdominal Surgery Y HYST 08/21/12 11:06pm HX Cerebrovascular Accident N 08/21/12 11:06pm Hx Seizures N 08/21/12 11:06pm Hx Angina N 08/21/12 11:06pm Hx Congestive Heart Failure N 08/21/12 11:06pm Hx Heart Attack N 08/21/12 11:06pm Hx Hypertension N 08/21/12 11:06pm Hx Rheumatic Fever N 08/21/12 11:06pm Hx Chronic Obstructive Pulmonary Disease (COPD) N 08/21/12 11:06pm Hx Diabetes N 08/21/12 11:06pm Hx Cancer Y CERVICAL 08/21/12 11:06pm Hx MRSA N 08/21/12 11:06pm HX of Reproductive Surgeries VAG HYSTERECTOMY,BOTH OVARIES REMOVED AFTER THEY BURST 08/21/12 11:06pm HX of Throat Surgery Y 08-TONSILS 08/21/12 11:06pm Neurological concussion 05/31/12 2:13pm Social History History Response Recorded Date/Time Smoking Status Never smoker 08/21/12 11:06pm Hx Substance Use N 08/21/12 11:06pm Hx Alcohol Use 2 PER MONTH-NONE RECENTLY 08/21/12 11:06pm Allergies, Adverse Reactions, Alerts Allergen Type Severity Reaction Last Updated Procaine Allergy Unknown 05/28/12 Medications Medication Dose Units Route Sig Qty Days Acetaminophen/Codeine Phosphate (Tylenol #3) HS Sulfamethoxazole/Trimethoprim (Bactrim Ds) 2 Tab PO BID Green Tea [place] Extract (Green Tea) 1 Cap PO [Ph Balance Med] Immunizations Name Given Type Hx Influenza Vaccination N H Hx Pneumococcal Vaccination N H Hx Tetanus, Diptheria, Pertussis Y 2011 H Response Recorded Date/Time Status not known Unknown Results Test Date Result Interp. Ref. Range Alanine Aminotransferase (ALT/SGPT) December 21, 2010 8:20am 35 U/L N 9-52 Albumin December 21, 2010 8:20am 4.0 G/DL N 3.5-5.0 Albumin/Globulin Ratio December 21, 2010 8:20am 1.4 RATIO N 1.1-2.2 Alkaline Phosphatase December 21, 2010 8:20am 163 U/L H 38-126 Amylase Level February 13, 2010 10:50pm 42 U/L N 30-110 Anion Gap December 21, 2010 8:20am 12 MEQ/L N 5-15 Aspartate Amino Transf (AST/SGOT) December 21, 2010 8:20am 22 U/L N 14-36 BUN/Creatinine Ratio December 21, 2010 8:20am 10 RATIO N 6-26 Basophils # (Auto) December 19, 2010 12:25pm 0.0 T/MM3 N 0-0.2 Basophils (%) (Auto) December 19, 2010 12:25pm 0.5 % N 0-2 Blood Urea Nitrogen December 21, 2010 8:20am 10.0 MG/DL N 7-17 Calcium Level December 21, 2010 8:20am 9.2 MG/DL N 8.4-10.2 Calculated Osmolality December 21, 2010 8:20am 271 MOSM/KG N 261-280 Carbon Dioxide Level December 21, 2010 8:20am 28 MEQ/L N 22-30 Chloride Level December 21, 2010 8:20am 102 MEQ/L N 98-107 Cholesterol Level December 21, 2010 8:20am 176 MG/DL N 132-199 Cholesterol/HDL Ratio December 21, 2010 8:20am 3.6 RATIO N 0-4.0 Conjugated Bilirubin February 13, 2010 10:50pm 0.00 MG/DL N 0.00-0.30 Creatinine December 21, 2010 8:20am 1.0 MG/DL N 0.7-1.2 Eosinophils # (Auto) December 19, 2010 12:25pm 0.1 T/MM3 N 0-0.5 Eosinophils (%) (Auto) December 19, 2010 12:25pm 1.6 % N 0-4 Erythrocyte Sedimentation Rate December 19, 2010 12:25pm 13 MM/HR N 0-20 Globulin December 21, 2010 8:20am 2.8 G/DL N 2.4-3.6 Glucose Level December 21, 2010 8:20am 86 MG/DL N 65-110 Group A Streptococcus Screen November 14, 2007 9:37pm Negative - Hematocrit December 19, 2010 12:25pm 41.9 % N 36-46 Hemoglobin December 19, 2010 12:25pm 14.0 GM/DL N 12-16 LDL Cholesterol, Calculated December 21, 2010 8:20am 114.6 N 66-159 Lipase February 13, 2010 10:50pm 131 U/L N 23-300 Lymphocytes # (Auto) December 19, 2010 12:25pm 2.1 T/MM3 N 1-4.8 Lymphocytes (%) (Auto) December 19, 2010 12:25pm 25.4 % N 23-45 Mean Corpuscular Hemoglobin December 19, 2010 12:25pm 28.6 UUG N 26-34 Mean Corpuscular Hemoglobin Concent December 19, 2010 12:25pm 33.4 GM/DL N 31-37 Mean Corpuscular Volume December 19, 2010 12:25pm 85.7 UM3 N 80-100 Mean Platelet Volume December 19, 2010 12:25pm 9.3 UM3 L 9.4-12.4 Monocytes # (Auto) December 19, 2010 12:25pm 0.5 T/MM3 N 0-0.8 Monocytes (%) (Auto) December 19, 2010 12:25pm 5.6 % N 0-9.0 Monoscreen February 13, 2010 10:50pm Negative - Neutrophils # (Auto) December 19, 2010 12:25pm 5.6 T/MM3 N 1.8-7.7 Neutrophils (%) (Auto) December 19, 2010 12:25pm 66.7 % H 33-66 Platelet Count December 19, 2010 12:25pm 376 T/MM3 N 130-400 Potassium Level December 21, 2010 8:20am 5.0 MEQ/L N 3.6-5 RDW Standard Deviation December 19, 2010 12:25pm 41.3 FL N 36.9-50.2 Red Blood Count December 19, 2010 12:25pm 4.89 M/MM3 N 4.00-5.20 Sodium Level December 21, 2010 8:20am 142 MEQ/L N 134-144 Thyroid Stimulating Hormone (TSH) December 21, 2010 8:20am 2.07 MIU/L N 0.47-4.68 Total Bilirubin December 21, 2010 8:20am 0.30 MG/DL N 0.20-1.30 Total Protein December 21, 2010 8:20am 6.8 G/DL N 6.3-8.2 Triglycerides Level December 21, 2010 8:20am 62 MG/DL N 35-135 Troponin I April 14, 2008 11:52pm 0.008 ng/ml N 0-0.12 Unconjugated Bilirubin February 13, 2010 10:50pm 0.15 MG/DL N 0.00-1.10 Urine Bacteria July 25, 2008 10:44pm 2+ - Urine Bilirubin February 13, 2010 11:20pm Negative - Urine Blood February 13, 2010 11:20pm Negative - Urine Collection Type February 13, 2010 11:20pm Voided - Urine Color February 13, 2010 11:20pm Yellow - Urine Culture Indicated July 25, 2008 10:44pm Cult set up - Urine Glucose (UA) February 13, 2010 11:20pm Negative - Urine Ketones February 13, 2010 11:20pm Negative - Urine Leukocyte Esterase February 13, 2010 11:20pm Negative - Urine Nitrite February 13, 2010 11:20pm Negative - Urine Protein February 13, 2010 11:20pm Negative - Urine RBC July 25, 2008 10:44pm 50-200 /HPF - Urine Specific [place] February 13, 2010 11:20pm 1.005 L - Urine Turbidity February 13, 2010 11:20pm Clear - Urine Urobilinogen February 13, 2010 11:20pm Normal EU/DL - Urine WBC July 25, 2008 10:44pm 50-200 /HPF - Urine pH February 13, 2010 11:20pm 7.0 - VLDL Cholesterol December 21, 2010 8:20am 12.4 MG/DL N 0-28 White Blood Count December 19, 2010 12:25pm 8.4 T/MM3 N 4.5-11.0 EKG July 10, 2008 12:57pm Complete - HDL Cholesterol Direct December 21, 2010 8:20am 49 MG/DL N 40-60 Glomerular Filtration Rate Calc December 21, 2010 8:20am 63 - Immature Granulocyte # (Auto) December 19, 2010 12:25pm 0.02 T/MM3 N 0.00- 0.03 Immature Granulocyte % (Auto) December 19, 2010 12:25pm 0.2 % N 0.0-0.5 Urine Microscopic Not Indicated February 13, 2010 11:20pm Not indicated - Procedures Procedure Code Date CARPAL TUNNEL SURGERY 89607 07/10/08 REMOVE WRIST TENDON LESION [id number] 07/10/08 APPLY FOREARM SPLINT 28903 11/04/09 THER/PROPH/DIAG INJ IV PUSH [id number] 02/13/10 TX/PRO/DX INJ NEW DRUG ADDON [id number] 02/13/10 TX/PRO/DX INJ SAME DRUG FRONTEND ENGINEER [id number] 02/13/10 Group A Streptococcus Culture 11/14/07 Urine Culture 07/25/08 Encounters Encounter Location Date/Time Departed Emergency Room [facility] 08/21/12 11:03pm Registered Emergency Room [facility] 11/14/07 9:22pm
--- OUTSIDE RECORDS SUMMARY | 2016-05-15 14:59 | XMS REPORT | Continuity of Care Document ---
Author Author [facility] Organization [facility] Address Unknown Phone Unavailable Support Name Relationship Address Phone HIRA MEJIA MD Caregiver [address] [place] [phone] NOEL SAN APRN Caregiver [address] [place] [address] [phone] SHAUN MONDRAGON MD Caregiver [address] [place] [address] [place] [address] JENNIFER DEE Next Of Kin [address] [place], [place] [id number] Insurance Providers Payer Name Policy Number Subscriber Name Relationship [facility] [id number] Mariah Tinajero 18 Self Advance Directives Directive [...] sprain Unknown Active Wound cellulitis Unknown Active Paraspinal muscle spasm Unknown Active Lumbar back pain Unknown Active Paraspinal muscle spasm Unknown Active Medications Medication Dose Route Sig [...] Balance Med] 12/15/10 05/28/12 Discontinued Green Tea [place] Extract 1 Cap PO 12/15/10 05/28/12 Discontinued Sulfamethoxazole/Trimethoprim 2 Tab PO TWICE A DAY 12/19/10 Discontinued Acetaminophen/Codeine Phosphate BEDTIME 12/19/10 05/28/12 Discontinued Ibuprofen 800 Mg PO PRN 09/26/12 Active Hydrocodone Bit/Acetaminophen 1 Tab PO EVERY 4-6 HOURS PRN PAIN 10 Qty 09/01/13 11/14/13 Discontinued Hydrocodone/Acetaminophen 1 Tab PO EVERY 4-6 HOURS PRN PAIN 10 Qty 11/14/13 Discontinued Hydrocodone/Acetaminophen 1 Tab PO EVERY 4-6 HOURS 15 Qty 04/17/14 Active Cyclobenzaprine HCl 1 Tab PO THREE TIMES A DAY 15 Qty 04/17/14 Active Social History Social History Problem Response Recorded Date/Time Chewing Tobacco Status No 08/31/2013 8:26pm Hx Substance Use No 04/17/2014 11:05pm Hx Alcohol Use Y 2 PER MONTH-NONE RECENTLY 04/17/2014 11:05pm Tobacco Usage none 09/01/2013 12:40am Query Response Start Date Stop Date Smoking Status Never smoker Hospital Discharge Instructions No hospital discharge instructions. Plan of Care No plan of care. Functional Status Query Response Date Recorded Physical Hygiene Self April 17, 2014 11:05pm Disabilities None August 31, 2013 8:26pm Devices Used None April 17, 2014 11:05pm Dressing Self April 17, 2014 11:05pm Ambulation Self April 17, 2014 11:05pm Diet Self April 17, 2014 11:05pm Mental Status Alert September 01, 2013 1:14am Disabilities None August 31, 2013 8:26pm Devices Used None April 17, 2014 11:05pm Physical Hygiene Self April 17, 2014 11:05pm Dressing Self April 17, 2014 11:05pm Ambulation Self April 17, 2014 11:05pm Diet Self April 17, 2014 11:05pm Allergies, Adverse Reactions, Alerts Allergen Type Severity Reaction Status Last Updated Procaine Adverse Reaction Mild WEARS OFF SLOW Active 04/17/14 Immunizations Name Given Type Hx Influenza Vaccination No Historical Hx Pneumococcal Vaccination No Historical Hx Tetanus, Diptheria, Pertussis Y 2010 Historical Hx Influenza Vaccination No Historical Hx Tetanus, Diptheria, Pertussis Y 2010 Historical Hx Tetanus Toxoid Vaccination NOT ASSESSED, NO OPEN AREAS Historical Vital Signs Acute Vital Signs Vital Response Date/Time Temperature (Fahrenheit) 96.4 deg F (96.8 - 99.1) Temperature (Calculated Celsius) 35.35787 degrees C (36.0 - 37.3) Pulse Rate (adult) 62 bpm (60 - 100) Respiratory Rate 20 breaths/min (10 - 20) O2 Sat by Pulse Oximetry 97 % (90 - 100) Blood Pressure 126/74 mm Hg Blood Pressure 126/74 mm Hg Height (Feet) 5 feet Height (Inches) 3.00 inches Weight (Kilograms) 108.5 kg Body Mass Index (BMI) 42.0 Results Test Source Date Result Interp. Ref. [...] Has specimen been collected/obtained? Y Urine Specific [place] August 31, 2013 8:50pm >=1.030 H - [...] 21, 2013 9:47pm LAB TEST FORM REQUEST [id number] - EKG July 10, 2008 12:57pm Complete [...] Voided July 25, 2008 11:14pm Escherichia Coli Procedures No known history of procedures. Encounters Encounter Location Date/Time Registered Emergency Room [facility] 04/17/14 10:55pm Recent Diagnosis
--- OUTSIDE RECORDS SUMMARY | 2016-05-15 14:59 | XMS REPORT | Continuity of Care Document ---
Author Author [facility] Organization [facility] Address Unknown Phone Unavailable Allergies Medications Problems Date Dx Coded Attending Type Code Diagnosis Diagnosed By 11/20/2011 Mateo Santos MD Admitting 724.2 LUMBAGO 11/20/2011 Mateo Santos MD Final 724.3 SCIATICA Procedures Results Encounters ACCT No. Visit Date/Time Discharge Status Pt. Type Provider Facility Loc./Unit Complaint [id number] 11/20/2011 10:57:00 2011 12:33:00 DIS Emergency Mateo Santos MD [facility]
--- OUTSIDE RECORDS SUMMARY | 2016-05-15 14:59 | XMS REPORT | Continuity of Care Document ---
Author Author [facility] Organization [facility] Address Unknown Phone Unavailable Support Name Relationship Address Phone RICK LIVINGSTON MD Caregiver [facility] [address] [place] [address] Unavailable HIRA MEJIA MD Caregiver [address] [place] [address] JENNIFER DEE Next Of Kin [address] [place] [address] Insurance Providers Payer Name Policy Number Subscriber Name Relationship [facility] [id number] Mariah Tinajero 18 Self Advance Directives Directive Response Recorded Date/Time Advanced Directives Type None 08/31/13 8:15pm Problems Medical Problems Problem Onset Date Status KNEE SPRAIN Unknown Active Abdominal pain Unknown Active Abdominal pain Unknown Active Medications Medication Dose Route Sig [...] Balance Med] 12/15/10 05/28/12 Discontinued Green Tea [place] Extract 1 Cap PO 12/15/10 05/28/12 Discontinued Sulfamethoxazole/Trimethoprim 2 Tab PO TWICE A DAY 12/19/10 Discontinued Acetaminophen/Codeine Phosphate BEDTIME 12/19/10 05/28/12 Discontinued Ibuprofen PRN 09/26/12 Active Omeprazole Mg PO BEFORE BREAKFAST PRN INDIGESTION 08/31/13 Active Hydrocodone Bit/Acetaminophen 1 Tab PO EVERY 4-6 HOURS PRN PAIN 10 Qty 09/01/13 Active Prochlorperazine Maleate 10 Mg PO Every 8 Hours PRN NAUSEA 15 Qty 09/01 Active Social History Social History Problem Response Recorded Date/Time Smoking Status Never smoker 08/31/2013 8:26pm Chewing Tobacco Status No 08/31/2013 8:26pm Hx Substance Use No 08/31/2013 8:26pm Hx Alcohol Use Y 2 PER MONTH-NONE RECENTLY 08/31/2013 8:26pm Query Response Start Date Stop Date Smoking Status Never smoker Hospital Discharge Instructions No hospital discharge instructions. Plan of Care No plan of care. Functional Status Query Response Date Recorded Disabilities None August 31, 2013 8:26pm Devices Used Glasses August 31, 2013 8:26pm Mental Status Alert September 01, 2013 1:14am Disabilities None August 31, 2013 8:26pm Devices Used Glasses August 31, 2013 8:26pm Allergies, Adverse Reactions, Alerts Allergen Type Severity Reaction Status Last Updated Procaine Allergy Unknown Active 08/31/13 Immunizations Name Given Type Hx Influenza Vaccination No Historical Hx Pneumococcal Vaccination No Historical Hx Tetanus, Diptheria, Pertussis Y 2010 Historical Hx Influenza Vaccination No Historical Hx Tetanus, Diptheria, Pertussis Y 2010 Historical Hx Tetanus Toxoid Vaccination NOT ASSESSED, NO OPEN AREAS Historical Vital Signs Acute Vital Signs Vital Response Date/Time Temperature (Fahrenheit) 96.7 deg F (96.8 - 99.1) Temperature (Calculated Celsius) 35.73125 degrees C (36.0 - 37.3) Pulse Rate (adult) 74 bpm (60 - 100) Respiratory Rate 16 breaths/min (10 - 20) O2 Sat by Pulse Oximetry 97 % (90 - 100) Blood Pressure 130/65 mm Hg Height 5 ft 3 in Weight 233 lb Body Mass Index 41.0 kg/m^2 Results [...] Has specimen been collected/obtained? Y Urine Specific [place] August 31, 2013 8:50pm >=1.030 H - [...] 21, 2013 9:47pm LAB TEST FORM REQUEST [id number] - EKG July 10, 2008 12:57pm Complete [...] history of procedures. Encounters Encounter Location Date/Time Departed Emergency Room [facility] 08/31/13 8:07pm Recent Diagnosis
--- OUTSIDE RECORDS SUMMARY | 2016-05-15 14:59 | XMS REPORT | Continuity of Care Document ---
Author Author [facility] Organization [facility] Address Unknown Phone Unavailable Support Name Relationship Address Phone ELBA SARKAR DO Caregiver [facility] [address] [place] [phone] NOEL SAN YEAST CULTURE OPERATOR Caregiver [address] [place] [address] [phone] LEILAJENNIFER Next Of Kin [address] [place] [address] Insurance Providers Payer Name Policy Number Subscriber Name Relationship [facility] [id number] Mariah Tinajero 18 Self Advance Directives Directive [...] Unknown Active Paraspinal muscle spasm Unknown Active Paraspinal muscle spasm Unknown Active Lumbar back pain Unknown Active Medications Medication Dose Route [...] Balance Med] 12/15/10 05/28/12 Discontinued Green Tea [place] Extract 1 Cap PO 12/15/10 05/28/12 Discontinued [...] TIMES A DAY 15 Qty 04/17/14 Active Ibuprofen 1 Tab PO Every 8 Hours PRN PAIN 20 Qty 04/21/14 Active Social History Social History Problem Response Recorded Date/Time Chewing Tobacco Status No 08/31/2013 8:26pm Hx Substance Use No 04/21/2014 8:20am Hx Alcohol Use Y 2 PER MONTH-NONE RECENTLY 04/21/2014 8:20am Tobacco Usage none 09/01/2013 12:40am Query Response Start Date Stop Date Smoking Status Never smoker Hospital Discharge Instructions No hospital discharge instructions. Plan of Care No plan of care. Functional Status Query Response Date Recorded Physical Hygiene Self April 21, 2014 8:20am Disabilities None August 31, 2013 8:26pm Devices Used None April 21, 2014 8:20am Dressing Self April 21, 2014 8:20am Ambulation Self April 21, 2014 8:20am Diet Self April 21, 2014 8:20am Mental Status Alert September 01, 2013 1:14am Disabilities None August 31, 2013 8:26pm Devices Used None April 21, 2014 8:20am Physical Hygiene Self April 21, 2014 8:20am Dressing Self April 21, 2014 8:20am Ambulation Self April 21, 2014 8:20am Diet Self April 21, 2014 8:20am Allergies, Adverse Reactions, Alerts Allergen Type Severity Reaction Status Last Updated Procaine Adverse Reaction Mild WEARS OFF SLOW Active 04/21/14 Immunizations Name Given Type Hx Influenza Vaccination No Historical Hx Pneumococcal Vaccination No Historical Hx Tetanus, Diptheria, Pertussis Y 2010 Historical Hx Influenza Vaccination No Historical Hx Tetanus, Diptheria, Pertussis Y 2010 Historical Hx Tetanus Toxoid Vaccination NOT ASSESSED, NO OPEN AREAS Historical Vital Signs Acute Vital Signs Vital Response Date/Time Temperature (Fahrenheit) 96.8 deg F (96.8 - 99.1) Temperature (Calculated Celsius) 36.81591 degrees C (36.0 - 37.3) Pulse Rate (adult) 70 bpm (60 - 100) Respiratory Rate 20 breaths/min (10 - 20) O2 Sat by Pulse Oximetry 94 % (90 - 100) Blood Pressure 123/71 mm Hg Height 5 ft 2 in Weight 236 lb Body Mass Index 43.0 kg/m^2 Results Test Source Date Result Interp. [...] Has specimen been collected/obtained? Y Urine Specific [place] August 31, 2013 8:50pm >=1.030 H - [...] 21, 2013 9:47pm LAB TEST FORM REQUEST [id number] - EKG July 10, 2008 12:57pm Complete [...] Escherichia Coli Name: MARIAH TINAJERO Unit #: [id number] : 1975 Sex: F Loc / Svc: ED DOS: 04/17/14 Signed Report #: [id number] DIAGNOSTIC IMAGING REPORT TYPE OF EXAM: LUMBAR SPINE 2 VIEW Dictated By: CEFERINO GUERRERO MD Indication: ITS.REASON: BACK PAIN AND SPASMS LUMBAR SPINE 2 VIEW: Comparison: None Findings: The alignment of the lumbar spine is straightened with loss of the normal lordosis. No acute fracture or subluxation. Mild disk space narrowing at L4-L5. Mild degenerative facet disease at L4-L5 on the right. Cholecystectomy clips. Impression: No acute fracture. Mild degenerative changes. . Procedures No known history of procedures. Encounters Encounter Location Date/Time Departed Emergency Room [facility] 04/21/14 7:45am Departed Emergency Room [facility] 04/17/14 10:55pm Recent Diagnosis
--- OUTSIDE RECORDS SUMMARY | 2016-05-15 15:21 | XMS REPORT | Continuity of Care Document ---
Author Author [facility] Organization [facility] Address Unknown Phone Unavailable Care Team Providers Care Destination Sign Repairer Name Role Phone LAUREN VALLE MD PP Unavailable Insurance Providers Payer Name Policy Number Subscriber Name Relationship [facility] [id number] Mariah Tinajero July 06 Self Problems No [...] Ds) 2 Tab PO BID Green Tea [place] Extract (Green Tea) 1 Cap PO [Ph Balance Med] Immunizations Name Given Type Hx Influenza Vaccination N H Hx Pneumococcal Vaccination N H Hx Tetanus, Diptheria, Pertussis Y 2010 H Response Recorded Date/Time Status not known Unknown Results No Known Relevant Diagnostic Tests, Laboratory Data and/or Discharge Summary. Procedures Procedure Code Date CARPAL TUNNEL SURGERY 90898 07/10/08 REMOVE WRIST TENDON LESION 70274 07/10/08 APPLY FOREARM SPLINT 63005 11/04/09 THER/PROPH/[place] 76452 02/13/10 TX/PRO/DX INJ NEW DRUG ADDON 51242 02/13/10 TX/PRO/DX INJ SAME DRUG ASSISTANT CHIEF TRAIN DISPATCHER 95522 02/13/10 Group A Streptococcus Culture 11/14/07 Urine Culture 07/25/08 Encounters Encounter Location Date/Time Departed Emergency Room [facility] 09/26/12 9:39pm Registered Emergency Room [facility] 11/14/07 9:22pm
--- OUTSIDE RECORDS SUMMARY | 2016-05-15 15:22 | XMS REPORT | Continuity of Care Document ---
Author Author [facility] Organization [facility] Address Unknown Phone Unavailable Support Name Relationship Address Phone HIRA MEJIA MD Caregiver [address] [place] [phone] MARY MÉNDEZ MD Caregiver [address] [place] [address] [place] [phone] JENNIFER DEE Next Of Kin [address] [place] [address] Insurance Providers Payer Name Policy Number Subscriber Name Relationship [facility] [id number] Mariah Tinajero 18 Self Advance Directives Directive [...] Balance Med] 12/15/10 05/28/12 Discontinued Green Tea [place] Extract 1 Cap PO 12/15/10 05/28/12 Discontinued [...] F (96.8 - 99.1) Temperature (Calculated Celsius) 36.75074 degrees C (36.0 - 37.3) Pulse Rate [...] Has specimen been collected/obtained? Y Urine Specific [place] August 31, 2013 8:50pm >=1.030 H - [...] 21, 2013 9:47pm LAB TEST FORM REQUEST [id number] - EKG July 10, 2008 12:57pm Complete [...] Escherichia Coli Name: MARIAH TINAJERO Unit #: [id number] : 1975 Sex: F Loc / Svc: ED DOS: 08/31/13 Signed Report #: [id number] DIAGNOSTIC IMAGING REPORT TYPE OF EXAM: ABDOMEN [...] ADDON completed 08/31/13 TX/PRO/DX INJ SAME DRUG QUAL RESEARCH MANAGER completed 08/31/13 TX/PRO/DX INJ SAME DRUG QUAL RESEARCH MANAGER completed 08/31/13 TX/PRO/DX INJ SAME DRUG QUAL RESEARCH MANAGER completed 08/31/13 Encounters Encounter Location Date/Time Registered Emergency Room [facility] 09/14/13 1:20am Departed Emergency Room [facility] 08/31/13 8:07pm Recent Diagnosis
--- OUTSIDE RECORDS SUMMARY | 2016-05-15 15:22 | XMS REPORT | Continuity of Care Document ---
Author Author [facility] Organization [facility] Address Unknown Phone Unavailable Support Name Relationship Address Phone ELBA SARKAR DO Caregiver [facility] [address] [place], [place] [phone] HIRA MEJIA MD Caregiver [address] [place] [address] JENNIFER DEE Next Of Kin [address] [place] [address] Insurance Providers Payer Name Policy Number Subscriber Name Relationship [facility] [id number] Mariah Tinajero 18 Self Advance Directives Directive [...] Balance Med] 12/15/10 05/28/12 Discontinued Green Tea [place] Extract 1 Cap PO 12/15/10 05/28/12 Discontinued [...] F (96.8 - 99.1) Temperature (Calculated Celsius) 36.56299 degrees C (36.0 - 37.3) Pulse Rate [...] Has specimen been collected/obtained? Y Urine Specific [place] August 31, 2013 8:50pm >=1.030 H - [...] 21, 2013 9:47pm LAB TEST FORM REQUEST [id number] - EKG July 10, 2008 12:57pm Complete [...] Escherichia Coli Name: MARIAH TINAJERO Unit #: [id number] : 1975 Sex: F Loc / Svc: ED DOS: 11/12/13 Signed Report #: [id number] DIAGNOSTIC IMAGING REPORT TYPE OF EXAM: FOOT [...] ADDON completed 08/31/13 TX/PRO/DX INJ SAME DRUG RESEARCH SOFTWARE ENGINEER completed 08/31/13 TX/PRO/DX INJ SAME DRUG RESEARCH SOFTWARE ENGINEER completed 08/31/13 TX/PRO/DX INJ SAME DRUG RESEARCH SOFTWARE ENGINEER completed 08/31/13 THER/PROPH/DIAG INJ SC/IM completed 09/14/13 APPLICATION OF FINGER SPLINT completed 09/14/13 MARY MÉNDEZ MD Encounters Encounter Location Date/Time Departed Emergency Room [facility] 11/14/13 7:33pm Departed Emergency Room [facility] 11/12/13 5:12pm Departed Emergency Room [facility] 09/14/13 1:20am Departed Emergency Room [facility] 08/31/13 8:07pm Recent Diagnosis
--- OUTSIDE RECORDS SUMMARY | 2016-05-15 15:22 | XMS REPORT | Continuity of Care Document ---
Author Author [facility] Organization [facility] Address Unknown Phone Unavailable Support Name Relationship Address Phone ELBA SARKAR DO Caregiver [facility] [address] [place] [phone] NOEL SAN GRAPHIC SPECIALIST Caregiver [address] [place] [address] [phone] LEILAJENNIFER Next Of Kin [address] [place] [address] Insurance Providers Payer Name Policy Number Subscriber Name Relationship [facility] [id number] Mariah Tinajero 18 Self Advance Directives Directive [...] Balance Med] 12/15/10 05/28/12 Discontinued Green Tea [place] Extract 1 Cap PO 12/15/10 05/28/12 Discontinued [...] F (96.8 - 99.1) Temperature (Calculated Celsius) 36.07128 degrees C (36.0 - 37.3) Pulse Rate [...] Has specimen been collected/obtained? Y Urine Specific [place] August 31, 2013 8:50pm >=1.030 H - [...] 21, 2013 9:47pm LAB TEST FORM REQUEST [id number] - EKG July 10, 2008 12:57pm Complete [...] Escherichia Coli Name: MARIAH TINAJERO Unit #: [id number] : 1975 Sex: F Loc / Svc: ED DOS: 04/17/14 Signed Report #: [id number] DIAGNOSTIC IMAGING REPORT TYPE OF EXAM: LUMBAR [...] Encounters Encounter Location Date/Time Departed Emergency Room [facility] 04/21/14 7:45am Departed Emergency Room [facility] 04/17/14 10:55pm Recent Diagnosis
--- OUTSIDE RECORDS SUMMARY | 2016-05-15 15:23 | XMS REPORT | Continuity of Care Document ---
Author Author [facility] Organization [facility] Address Unknown Phone Unavailable Allergies Medications Problems Date Dx Coded Attending Type Code Diagnosis Diagnosed By 11/20/2011 Mateo Santos MD Admitting 724.2 LUMBAGO 11/20/2011 Mateo Santos MD Final 724.3 SCIATICA Procedures Results Encounters ACCT No. Visit Date/Time Discharge Status Pt. Type Provider Facility Loc./Unit Complaint [id number] 11/20/2011 10:57:00 2011 12:33:00 DIS Emergency Mateo Santos MD [facility]
--- OUTSIDE RECORDS SUMMARY | 2016-05-15 15:23 | XMS REPORT | Continuity of Care Document ---
Author Author [facility] Organization [facility] Address Unknown Phone Unavailable Care Team Providers Care Clay Worker Name Role Phone LAUREN VALLE MD PP Unavailable Insurance Providers Payer Name Policy Number Subscriber Name Relationship [facility] [id number] Mariah Tinajero July 06 Self Problems No [...] Ds) 2 Tab PO BID Green Tea [place] Extract (Green Tea) 1 Cap PO [Ph [...] 2008 10:44pm 50-200 /HPF - Urine Specific [place] February 13, 2010 11:20pm 1.005 L - [...] Procedures Procedure Code Date CARPAL TUNNEL SURGERY 90456 07/10/08 REMOVE WRIST TENDON LESION 30048 07/10/08 APPLY FOREARM SPLINT 15206 11/04/09 THER/PROPH/DIAG INJ IV PUSH 98678 02/13/10 TX/PRO/DX INJ NEW DRUG ADDON 93774 02/13/10 TX/PRO/DX INJ SAME DRUG ASSOCIATE PROFESSOR OF GEOLOGY 32910 02/13/10 Group A Streptococcus Culture 11/14/07 Urine Culture 07/25/08 Encounters Encounter Location Date/Time Departed Emergency Room [facility] 08/21/12 11:03pm Registered Emergency Room [facility] 11/14/07 9:22pm
--- OUTSIDE RECORDS SUMMARY | 2016-05-15 15:23 | XMS REPORT | Continuity of Care Document ---
Author Author [facility] Organization [facility] Address Unknown Phone Unavailable Support Name Relationship Address Phone HIRA MEJIA MD Caregiver [address] [place] [phone] NOEL SAN APRN Caregiver [address] [place] [address] [phone] SHAUN MONDRAGON MD Caregiver [address] [place] [address] [place] [phone] JENNIFER DEE Next Of Kin [address] [place], [place] [phone] Insurance Providers Payer Name Policy Number Subscriber Name Relationship [facility] [id number] Mariah Tinajero 18 Self Advance Directives Directive [...] Balance Med] 12/15/10 05/28/12 Discontinued Green Tea [place] Extract 1 Cap PO 12/15/10 05/28/12 Discontinued [...] F (96.8 - 99.1) Temperature (Calculated Celsius) 35.24929 degrees C (36.0 - 37.3) Pulse Rate [...] Has specimen been collected/obtained? Y Urine Specific [place] August 31, 2013 8:50pm >=1.030 H - [...] 21, 2013 9:47pm LAB TEST FORM REQUEST [id number] - EKG July 10, 2008 12:57pm Complete [...] Encounters Encounter Location Date/Time Registered Emergency Room [facility] 04/17/14 10:55pm Recent Diagnosis
--- OUTSIDE RECORDS SUMMARY | 2016-05-15 15:23 | XMS REPORT | Continuity of Care Document ---
Author Author [facility] Organization [facility] Address Unknown Phone Unavailable Support Name Relationship Address Phone RICK LIVINGSTON MD Caregiver [facility] [address] [place] [address] Unavailable HIRA MEJIA MD Caregiver [address] [place] [address] JENNIFER DEE Next Of Kin [address] [place] [address] Insurance Providers Payer Name Policy Number Subscriber Name Relationship [facility] [id number] Mariah Tinajero 18 Self Advance Directives Directive [...] Balance Med] 12/15/10 05/28/12 Discontinued Green Tea [place] Extract 1 Cap PO 12/15/10 05/28/12 Discontinued [...] F (96.8 - 99.1) Temperature (Calculated Celsius) 35.66323 degrees C (36.0 - 37.3) Pulse Rate [...] Has specimen been collected/obtained? Y Urine Specific [place] August 31, 2013 8:50pm >=1.030 H - [...] 21, 2013 9:47pm LAB TEST FORM REQUEST [id number] - EKG July 10, 2008 12:57pm Complete [...] Encounters Encounter Location Date/Time Departed Emergency Room [facility] 08/31/13 8:07pm Recent Diagnosis
--- OUTSIDE RECORDS SUMMARY | 2016-05-15 15:23 | XMS REPORT | Continuity of Care Document ---
Author Author [facility] Organization [facility] Address Unknown Phone Unavailable Support Name Relationship Address Phone HIRA MEJIA MD Caregiver [address] [place] [phone] MARY MÉNDEZ MD Caregiver [address] [place] [address] [place] [phone] JENNIFER DEE Next Of Kin [address] [place] [address] Insurance Providers Payer Name Policy Number Subscriber Name Relationship [facility] [id number] Mariah Tinajero 18 Self Advance Directives Directive [...] Balance Med] 12/15/10 05/28/12 Discontinued Green Tea [place] Extract 1 Cap PO 12/15/10 05/28/12 Discontinued [...] F (96.8 - 99.1) Temperature (Calculated Celsius) 37.89389 degrees C (36.0 - 37.3) Pulse Rate [...] Has specimen been collected/obtained? Y Urine Specific [place] August 31, 2013 8:50pm >=1.030 H - [...] 21, 2013 9:47pm LAB TEST FORM REQUEST [id number] - EKG July 10, 2008 12:57pm Complete [...] Escherichia Coli Name: MARIAH TINAJERO Unit #: [id number] : 1975 Sex: F Loc / Svc: ED DOS: 09/14/13 Signed Report #: [id number] DIAGNOSTIC IMAGING REPORT TYPE OF EXAM: HAND [...] ADDON completed 08/31/13 TX/PRO/DX INJ SAME DRUG AIRCRAFT ENGINE ASSEMBLER completed 08/31/13 TX/PRO/DX INJ SAME DRUG AIRCRAFT ENGINE ASSEMBLER completed 08/31/13 TX/PRO/DX INJ SAME DRUG AIRCRAFT ENGINE ASSEMBLER completed 08/31/13 THER/PROPH/DIAG INJ SC/IM completed 09/14/13 APPLICATION OF FINGER SPLINT completed 09/14/13 MARY MÉNDEZ MD Encounters Encounter Location Date/Time Departed Emergency Room [facility] 11/12/13 5:12pm Departed Emergency Room [facility] 09/14/13 1:20am Departed Emergency Room [facility] 08/31/13 8:07pm Recent Diagnosis
--- NOTE | 2016-05-15 15:37 | ERPDOC ---
Departure Disposition Decision Date: May 15, 2016 Disposition Decision Time: 15:40 (GORDO VALADEZAntonia Barton APRN) Disposition: 01 DISCHARGED HOME, SELF-CARE Impression Impression (JAYASHREE VALADEZ Oralia CASTANO) Impression: Primary Impression: Tinea corporis Severity: Moderate (CLEMENTEDAVID Barton APRN) Condition: Stable Seen By: Mid-level only (MANUELJAYASHREE CISSE APRN) Referrals: SAMM TANG (Family) Patient Instructions: Tinea Corporis (DC) Problems/Meds/Labs Reviewed?: Yes Medications reviewed and manag: Yes (MANUELJAYASHREE CISSE APRN) Additional Instructions: Take the Diflucan as prescribed. I do want you to monitor for improvement. If this is not improving in the next 1-2 days then please follow up with your primary care provider. May also apply an over the counter antifungal cream as well. Follow up care ordered?: Yes Mental Status: Alert, Oriented (MANUELJAYASHREE CISSE APRN) Scripts Fluconazole (Diflucan) 150 Mg Tablet 1 TAB PO O, #4 TAB 0 Refills Take one tablet by mouth once a week for 4 weeks. Prov: GORDO VALADEZAntonia Barton APRN 05/15/16 HPI - Skin General General Chief Complaint: Skin Rash/Abscess Stated Complaint: RASH ON LEGS Time Seen by Provider: 15:08 Source: patient Exam Limitations: no limitations (RORYJAYASHREE Barton APRN) Time Seen by Provider: 15:08 (BEATRIZ REYNOSO MD) HPI - Skin General Initial Comments She has noted a rash on the bilateral upper thighs for the last week. It has been very itchy. She has applied Calamine lotion, Benadryl topically, and taken Benadryl tablets without much relief. She denies any excessive sweating that she has noticed. Has not had a rash like this that she recalls in the past. No new pets at home. Occurred At: home Onset: Gradual Duration: 1 week Severity: moderate Location: extremities (bilateral thighs) Possible Cause: no cause identified Associated Symptoms: rash, DENIES: blisters, change in skin texture, edema, fever, flushing, headache, hives, jaundice, malaise, nasal congestion, numbness , pallor, paresthesia, petechiae, sore throat, swelling/mass/lumps, tingling Hx of Similar Symptoms: No (NOLD,JAYASHREE N TECHNICAL SUPPORT DIRECTOR) Allergies: Coded Allergies: procaine (Verified Adverse Reaction, Mild, WEARS OFF SLOW, 05/15/16) Past History Past Medical History Metabolic: cancer ENMT: dental problems Hx Echocardiogram: No GI: GERD, gallbladder disease Neurological: concussion Musculoskeletal: other (NOLD,JAYASHREE N TECHNICAL SUPPORT DIRECTOR) Surgical History General: appendix, gallbladder, tonsils Reproductive/: hysterectomy Joint: carpal tunnel, hand (NOLD,JAYASHREE N TECHNICAL SUPPORT DIRECTOR) Family History Family PMH: FOUND: [place], diabetes, hypertension (NOLD,JAYASHREE N TECHNICAL SUPPORT DIRECTOR) Vaccines Hx Influenza Vaccination: No Hx Pneumococcal Vaccination: No Hx Tetanus, Diptheria, Pertuss: Yes (2010) (NOLD,JAYASHREE N TECHNICAL SUPPORT DIRECTOR) Social History Smoking Status: Never smoker Does patient use chewing tobac: No Second Hand Exposure: No Substance Use Type: does not use Alcohol Intake: none, other Sexuality: male partner (NOLD,JAYASHREE N TECHNICAL SUPPORT DIRECTOR) Review of Systems Constitutional Constitutional: DENIES: chills, fatigue, fever (NOLD,JAYASHREE N TECHNICAL SUPPORT DIRECTOR) Musculoskeletal General: DENIES: pain (NOLD,JAYASHREE N TECHNICAL SUPPORT DIRECTOR) Integumentary Skin: itching, rash (bilateral thighs), DENIES: sores (NOLD,JAYASHREE N TECHNICAL SUPPORT DIRECTOR) Neurological General: DENIES: headache, numbness, tingling, weakness (NOLD,JAYASHREE N TECHNICAL SUPPORT DIRECTOR) Physical Exam General General Nourishment: well nourished, well developed, appears stated age, no acute distress, adult General Body Habitus: well groomed (NOLD,JAYASHREE N TECHNICAL SUPPORT DIRECTOR) Vitals and Pain First Documented Vital Signs Date Time Temp Pulse Resp B/P Pulse Ox O2 Delivery O2 Flow Rate FiO2 05/15/16 14:55 98.0 73 17 128/69 97 Room Air (BEATRIZ REYNOSO MD) Vitals and Pain Weight: Kilograms: 101.200 Height (feet): 5 Height (inches): 3.00 Triage Pain Scale: (NOLD,JAYASHREE N TECHNICAL SUPPORT DIRECTOR) RN VS reviewed by Provider: Yes (NOLD,JAYASHREE N TECHNICAL SUPPORT DIRECTOR) Normal Exams: Lymphatic: No lymphadenopathy, or lymphedema noted Musculoskeletal: No tenderness, or deformity noted, good range of motion, all extremities Neurologic: Patient is alert, and oriented Psychiatric: Patient exhibits, appropriate attention, emotion and affect (JAYASHREE VALADEZ APRN) Integumentary (brief) Integumentary Brief: FOUND: rash (She has a macular pink rash on the bilateral thighs that does spread out in a circular pattern with the edges appearing more erythematous and like a collarette border. This is more consistent with a fungal type infection or yeast. ) (JAYASHREE VALADEZ APRN) Differential Diagnoses Considering: Abscess, Cellulitis, Hives/Urticaria, Poison Jolynn Dermatitis, Tinea Corporis, Scabies, Varicella/Shingles, Viral Exanthem (JAYASHREE VALADEZ APRN) Progress Results/Orders Lab Results Laboratory Tests Test 05/15/16 15:38 Glucometer 85mg/dL (BEATRIZ REYNOSO MD) Progress Progress Will go ahead and treat her today with Diflucan. Will have her apply topical antifungal if she prefers to as well. Follow up with her primary care provider as needed. We did take a BGM today and was 86 (JAYASHREE VALADEZ APRN) Progress Patient's history and exam reviewed. Agree with care given by midlevel in ER. (BEATRIZ REYNOSO MD) JAYASHREE VALADEZ APRN May 15, 2016 15:37 BEATRIZ REYNOSO MD May 15, 2016 17:19
[2016-05-15] MEDS ORDERED: FLUC150T PO (15:43)
--- NOTE | 2016-05-15 16:10 | NUR ---
DISMISSAL NOTE DISMISSAL INSTRUCTIONS GIVEN TO PT. AND NO FURTHER QUESITONS. RX FOR DIFLUCAN GIVEN TO PT. PT. LEFT ED AMBULATORY BY SELF.
[2016-05-15 16:34] VITALS: BP 137/80; PULSE 68; RESP 18; O2SAT 98
== END 2016-05-15 16:10 | disposition home or self-care (01) ==
LOC: ED 14:52
DX: B35.4 Tinea corporis (principal); Z83.3 Family history of diabetes mellitus
CPT/HCPCS: 82948

== ENCOUNTER 2016-06-12 15:31 | Emergency (ER) | payer BC ==
[~2016-06-12] VITALS: Ht 160 cm; Wt 102.2 kg
[~2016-06-12 15:31] MED LIST changes: -DIPH28.33 TOP; +FLUC150T PO; -FLUO20CA30 PO; -GABA-336 PO; -METF500T4 PO; -OMEP-122 PO; -OXYC1TAB8 PO
--- OUTSIDE RECORDS SUMMARY | 2016-06-12 15:35 | XMS REPORT | Continuity of Care Document ---
Author Author [facility] Organization [facility] Address Unknown Phone Unavailable Care Team Providers Care Crew Leader Gluing Name Role Phone LAUREN VALLE MD PP Unavailable Insurance Providers Payer Name Policy Number Subscriber Name Relationship [facility] [id number] Mariah Tinajero July 06 Self Problems No [...] Ds) 2 Tab PO BID Green Tea [place] Extract (Green Tea) 1 Cap PO [Ph Balance Med] Immunizations Name Given Type Hx Influenza Vaccination N H Hx Pneumococcal Vaccination N H Hx Tetanus, Diptheria, Pertussis Y 2010 H Response Recorded Date/Time Status not known Unknown Results No Known Relevant Diagnostic Tests, Laboratory Data and/or Discharge Summary. Procedures Procedure Code Date CARPAL TUNNEL SURGERY 61784 07/10/08 REMOVE WRIST TENDON LESION 62467 07/10/08 APPLY FOREARM SPLINT 74752 11/04/09 THER/PROPH/DIAG INJ [place] PUSH 34828 02/13/10 TX/PRO/DX INJ NEW DRUG ADDON 96811 02/13/10 TX/PRO/DX INJ SAME DRUG INSULATOR HELPER 96350 02/13/10 Group A Streptococcus Culture 11/14/07 Urine Culture 07/25/08 Encounters Encounter Location Date/Time Departed Emergency Room [facility] 09/26/12 9:39pm Registered Emergency Room [facility] 11/14/07 9:22pm
--- OUTSIDE RECORDS SUMMARY | 2016-06-12 15:36 | XMS REPORT | Continuity of Care Document ---
Author Author [facility] Organization [facility] Address Unknown Phone Unavailable Support Name Relationship Address Phone HIRA MEJIA MD Caregiver [address] [place] [phone] MARY MÉNDEZ MD Caregiver [address] [place] [address] [place] [phone] JENNIFER DEE Next Of Kin [address] [place] [address] Insurance Providers Payer Name Policy Number Subscriber Name Relationship [facility] [id number] Mariah Tinajero 18 Self Advance Directives Directive [...] Balance Med] 12/15/10 05/28/12 Discontinued Green Tea [place] Extract 1 Cap PO 12/15/10 05/28/12 Discontinued [...] F (96.8 - 99.1) Temperature (Calculated Celsius) 36.94618 degrees C (36.0 - 37.3) Pulse Rate [...] Has specimen been collected/obtained? Y Urine Specific [place] August 31, 2013 8:50pm >=1.030 H - [...] 21, 2013 9:47pm LAB TEST FORM REQUEST [id number] - EKG July 10, 2008 12:57pm Complete [...] Escherichia Coli Name: MARIAH TINAJERO Unit #: [id number] : 1975 Sex: F Loc / Svc: ED DOS: 08/31/13 Signed Report #: [id number] DIAGNOSTIC IMAGING REPORT TYPE OF EXAM: ABDOMEN [...] ADDON completed 08/31/13 TX/PRO/DX INJ SAME DRUG FIELD REPORTER completed 08/31/13 TX/PRO/DX INJ SAME DRUG FIELD REPORTER completed 08/31/13 TX/PRO/DX INJ SAME DRUG FIELD REPORTER completed 08/31/13 Encounters Encounter Location Date/Time Registered Emergency Room [facility] 09/14/13 1:20am Departed Emergency Room [facility] 08/31/13 8:07pm Recent Diagnosis
--- OUTSIDE RECORDS SUMMARY | 2016-06-12 15:36 | XMS REPORT | Continuity of Care Document ---
Author Author [facility] Organization [facility] Address Unknown Phone Unavailable Support Name Relationship Address Phone SAMM TANG Caregiver [address] [place] [address] Unavailable BEATRIZ REYNOSO MD Caregiver [address] [place] [address] [place] [address] Unavailable JENNIFER DEE Next Of Kin [address] [address] Insurance Providers Guarantor Mariah Tinajero Address [address] [place] [address] Email [email or web address] Payer [facility] Policy Number [id number] Subscriber's Name Mariah Tinajero Relationship 18 Self Group Number [id number] Advance Directives Directive Response Recorded Date/Time Advanced Directives Type None 08/31/13 8:15pm Chief Complaint and Reason for Visit Chief Complaint Skin Rash/Abscess Reason for Visit Tinea corporis Problems Active Problems Medical Problem Onset Date [...] neck Unknown Post-op pain Unknown Rash Unknown Tinea corporis Unknown Medications Current Home Medications Medication Dose Units Route Directions Days Qty Instructions Start Date Acetaminophen 325 Mg Tablet 650 Mg Oral Every 6 Hours as needed for Pain 12/10/15 Fluconazole (Diflucan) 150 Mg Tablet 1 Tab Oral Onetime 4 Tablet Take one tablet by mouth once a week for 4 weeks. 05/15/16 Ibuprofen 200 Mg Tablet 600 Mg Oral Every 6 Hours as needed for Pain 12/10/15 Past Home Medications Medication Directions Ordered Status Acetaminophen 500 Mg Tablet, 2 Tab Oral Every 8 Hours 03/12/15 Discontinued Acetaminophen (Tylenol Extra Strength) 500 Mg Tablet, 500 Mg Oral As Needed 11/04/09 Discontinued Acetaminophen/Codeine Phosphate (Tylenol #3) 1 Tab Tablet, Bedtime 12/19/10 Discontinued Acetaminophen/Hydrocodone Bitart (Gerlaw 5-325 Tablet) 5-325 Tablet, 1-2 Tab Oral Every 6 Hours as needed for Pain 08/22/15 Discontinued Azithromycin (Zithromax) 500 Mg Tablet, 1 Tab Oral Daily 10/08/15 Discontinued Cephalexin Monohydrate (Keflex) 250 Mg Capsule, 08/09/08 Discontinued Doxycycline Monohydrate (Doxycycline) 150 Mg Tablet, 150 Mg Peg Tube Twice A Day 07/10/08 Discontinued Fluoxetine Hcl 20 Mg Capsule, 20 Mg Oral Daily 08/22/15 Discontinued Green Tea [place] Extract (Green Tea) 1 Cap Capsule, 1 Cap Oral 12/15/10 Discontinued Hydrocodone Bit/Acetaminophen (Gerlaw 5/325 Tablet) 1 Tab Tablet, 1 Tab Oral Every 4-6 Hours as needed for Pain 09/01/13 Discontinued Hydrocodone/Acetaminophen (Gerlaw 5-325 Tablet) 1 Each Tablet, 1 Tab [...] Applicable Not Applicable Hx Substance Use No 05/15/2016 3:04pm Not Applicable Not Applicable Hx Alcohol Use No 05/15/2016 3:04pm Not Applicable Not Applicable Has the pt used tobacco in the last 12 months No 11/04/2015 9:52am Not Applicable Not Applicable Tobacco Usage none 09/01/2013 12:40am Not Applicable Not Applicable Query Response Start Date Stop Date Smoking Status Never smoker Hospital Discharge Instructions No hospital discharge instructions. Plan of Care Discharge Date 05/15/16 4:10pm Disposition 01 DISCHARGED HOME, SELF-CARE Condition at Discharge Stable Instructions/Education Provided Tinea Corporis (DC) Prescriptions See Medication Section Referrals SAMM TANG Address: [address] [place] [address] Additional Instructions/Education Take the Diflucan as prescribed. I do want you to monitor for improvement. If this is not improving in the next 1-2 days then please follow up with your primary care provider. May also apply an over the counter antifungal cream as well. Care Plan and Goals Physician Care Plan Problem:Fungal RAsh Goal: Follow up with primary care provider Instructions: Take medications and follow care plan as discussed/written Functional Status No functional status results. Allergies, Adverse Reactions, Alerts Allergen Type Severity Reaction Status Last Updated Procaine Adverse Reaction Mild WEARS OFF SLOW Active 05/15/16 Immunizations Query Response on File Recorded Date/Time Hx Influenza Vaccination No 11/04/15 9:52am Hx Pneumococcal Vaccination No 11/04/15 9:52am Hx Tetanus, Diptheria, Pertussis Y 201010/16/14 8:48pm Hx Influenza Vaccination No 11/04/15 9:52am Hx Tetanus, Diptheria, Pertussis Y 201010/16/14 8:48pm Hx Tetanus Toxoid Vaccination NOT ASSESSED, NO OPEN AREAS 10/16/14 8:48pm Influenza Vaccine Hx DOESN'T RECEIVE 05/15/16 3:04pm Tdap Vaccine Hx NO BROKEN SKIN 12/10/15 2:43pm Vital Signs Acute Vital Signs Vital Response Date/Time Temperature (Fahrenheit) 98.0 deg F (96.8 - 99.1) 05/15/2016 2:55pm Temperature (Calculated Celsius) 36.46451 degrees C (36.0 - 37.3) 05/15/2016 2:55pm Pulse Rate (adult) 68 bpm (60 - 100) 05/15/2016 4:34pm Respiratory Rate 18 breaths/min (10 - 20) 05/15/2016 4:34pm O2 Sat by Pulse Oximetry 98 % (90 - 100) 05/15/2016 4:34pm Blood Pressure 137/80 mm Hg 05/15/2016 4:34pm Height (Feet) 5 feet 05/15/2016 2:55pm Height (Inches) 3.00 inches 05/15/2016 2:55pm Weight (Kilograms) 101.200 kg 05/15/2016 2:55pm Body Mass Index (BMI) 39.0 05/15/2016 2:55pm Results Laboratory Results Test Name Result Units Flags Reference Collection Date/Time Result Date/ Time Comments Glucometer 85 mg/dL 65-110 05/15/2016 3:38pm 05/15/2016 3:41pm Procedures No known history of procedures. Encounters Encounter Location Arrival/Admit Date Discharge/Depart Date Attending Provider Departed Emergency Room [facility] 05/15/16 2:52pm 05/15/16 4: 10pm BEATRIZ REYNOSO MD Recent Diagnosis
--- OUTSIDE RECORDS SUMMARY | 2016-06-12 15:36 | XMS REPORT | Continuity of Care Document ---
Author Author [facility] Organization [facility] Address Unknown Phone Unavailable Support Name Relationship Address Phone ELBA SARKAR DO Caregiver [facility] [address] [place] [phone] NOEL SAN UNDERWRITING SALES REPRESENTATIVE Caregiver [address] [place] [address] [phone] ELILAJENNIFER Next Of Kin [address] [place] [address] Insurance Providers Payer Name Policy Number Subscriber Name Relationship [facility] [id number] Mariah Tinajero 18 Self Advance Directives Directive [...] Balance Med] 12/15/10 05/28/12 Discontinued Green Tea [place] Extract 1 Cap PO 12/15/10 05/28/12 Discontinued [...] F (96.8 - 99.1) Temperature (Calculated Celsius) 36.33544 degrees C (36.0 - 37.3) Pulse Rate [...] Has specimen been collected/obtained? Y Urine Specific [place] August 31, 2013 8:50pm >=1.030 H - [...] 21, 2013 9:47pm LAB TEST FORM REQUEST [id number] - EKG July 10, 2008 12:57pm Complete [...] Escherichia Coli Name: MARIAH TINAJERO Unit #: [id number] : 1975 Sex: F Loc / Svc: ED DOS: 04/17/14 Signed Report #: [id number] DIAGNOSTIC IMAGING REPORT TYPE OF EXAM: LUMBAR [...] Encounters Encounter Location Date/Time Departed Emergency Room [facility] 04/21/14 7:45am Departed Emergency Room [facility] 04/17/14 10:55pm Recent Diagnosis
--- OUTSIDE RECORDS SUMMARY | 2016-06-12 15:37 | XMS REPORT | Continuity of Care Document ---
Author Author [facility] Organization [facility] Address Unknown Phone Unavailable Support Name Relationship Address Phone HIRA MEJIA MD Caregiver [address] [place] [phone] NOEL SAN APRN Caregiver [address] [place] [address] [phone] SHAUN MONDRAGON MD Caregiver [address] [place] [address] [place] [address] JENNIFER DEE Next Of Kin [address] [place], [place] [phone] Insurance Providers Payer Name Policy Number Subscriber Name Relationship [facility] [id number] Mariah Tinajero 18 Self Advance Directives Directive [...] Balance Med] 12/15/10 05/28/12 Discontinued Green Tea [place] Extract 1 Cap PO 12/15/10 05/28/12 Discontinued [...] F (96.8 - 99.1) Temperature (Calculated Celsius) 35.95655 degrees C (36.0 - 37.3) Pulse Rate [...] Has specimen been collected/obtained? Y Urine Specific [place] August 31, 2013 8:50pm >=1.030 H - [...] 21, 2013 9:47pm LAB TEST FORM REQUEST [id number] - EKG July 10, 2008 12:57pm Complete [...] Encounters Encounter Location Date/Time Registered Emergency Room [facility] 04/17/14 10:55pm Recent Diagnosis
--- OUTSIDE RECORDS SUMMARY | 2016-06-12 15:37 | XMS REPORT | Continuity of Care Document ---
Author Author [facility] Organization [facility] Address Unknown Phone Unavailable Support Name Relationship Address Phone ELBA SARKAR DO Caregiver [facility] [address] [place], [place] [phone] HIRA MEJIA MD Caregiver [address] [place] [address] JENNIFER DEE Next Of Kin [address] [place] [address] Insurance Providers Payer Name Policy Number Subscriber Name Relationship [facility] [id number] Mariah Tinajero 18 Self Advance Directives Directive [...] Balance Med] 12/15/10 05/28/12 Discontinued Green Tea [place] Extract 1 Cap PO 12/15/10 05/28/12 Discontinued [...] F (96.8 - 99.1) Temperature (Calculated Celsius) 36.06086 degrees C (36.0 - 37.3) Pulse Rate [...] Has specimen been collected/obtained? Y Urine Specific [place] August 31, 2013 8:50pm >=1.030 H - [...] 21, 2013 9:47pm LAB TEST FORM REQUEST [id number] - EKG July 10, 2008 12:57pm Complete [...] Escherichia Coli Name: MARIAH TINAJERO Unit #: [id number] : 1975 Sex: F Loc / Svc: ED DOS: 11/12/13 Signed Report #: [id number] DIAGNOSTIC IMAGING REPORT TYPE OF EXAM: FOOT [...] ADDON completed 08/31/13 TX/PRO/DX INJ SAME DRUG SPEECH PATHOLOGY TEACHER completed 08/31/13 TX/PRO/DX INJ SAME DRUG SPEECH PATHOLOGY TEACHER completed 08/31/13 TX/PRO/DX INJ SAME DRUG SPEECH PATHOLOGY TEACHER completed 08/31/13 THER/PROPH/DIAG INJ SC/IM completed 09/14/13 APPLICATION OF FINGER SPLINT completed 09/14/13 MARY MÉNDEZ MD Encounters Encounter Location Date/Time Departed Emergency Room [facility] 11/14/13 7:33pm Departed Emergency Room [facility] 11/12/13 5:12pm Departed Emergency Room [facility] 09/14/13 1:20am Departed Emergency Room [facility] 08/31/13 8:07pm Recent Diagnosis
--- OUTSIDE RECORDS SUMMARY | 2016-06-12 15:37 | XMS REPORT | Continuity of Care Document ---
Author Author [facility] Organization [facility] Address Unknown Phone Unavailable Support Name Relationship Address Phone RICK LIVINGSTON MD Caregiver [facility] [address] [place] [address] Unavailable HIRA MEJIA MD Caregiver [address] [place] [address] JENNIFER DEE Next Of Kin [address] [place] [address] Insurance Providers Payer Name Policy Number Subscriber Name Relationship [facility] [id number] Mariah Tinajero 18 Self Advance Directives Directive [...] Balance Med] 12/15/10 05/28/12 Discontinued Green Tea [place] Extract 1 Cap PO 12/15/10 05/28/12 Discontinued [...] F (96.8 - 99.1) Temperature (Calculated Celsius) 35.68363 degrees C (36.0 - 37.3) Pulse Rate [...] Has specimen been collected/obtained? Y Urine Specific [place] August 31, 2013 8:50pm >=1.030 H - [...] 21, 2013 9:47pm LAB TEST FORM REQUEST [id number] - EKG July 10, 2008 12:57pm Complete [...] Encounters Encounter Location Date/Time Departed Emergency Room [facility] 08/31/13 8:07pm Recent Diagnosis
--- OUTSIDE RECORDS SUMMARY | 2016-06-12 15:37 | XMS REPORT | Continuity of Care Document ---
Author Author [facility] Organization [facility] Address Unknown Phone Unavailable Support Name Relationship Address Phone HIRA MEJIA MD Caregiver [address] [place] [phone] MARY MÉNDEZ MD Caregiver [address] [place] [address] [place] [phone] JENNIFER DEE Next Of Kin [address] [place] [address] Insurance Providers Payer Name Policy Number Subscriber Name Relationship [facility] [id number] Mariah Tinajero 18 Self Advance Directives Directive [...] Balance Med] 12/15/10 05/28/12 Discontinued Green Tea [place] Extract 1 Cap PO 12/15/10 05/28/12 Discontinued [...] F (96.8 - 99.1) Temperature (Calculated Celsius) 37.24643 degrees C (36.0 - 37.3) Pulse Rate [...] Has specimen been collected/obtained? Y Urine Specific [place] August 31, 2013 8:50pm >=1.030 H - [...] 21, 2013 9:47pm LAB TEST FORM REQUEST [id number] - EKG July 10, 2008 12:57pm Complete [...] Escherichia Coli Name: MARIAH TINAJERO Unit #: [id number] : 1975 Sex: F Loc / Svc: ED DOS: 09/14/13 Signed Report #: [id number] DIAGNOSTIC IMAGING REPORT TYPE OF EXAM: HAND [...] ADDON completed 08/31/13 TX/PRO/DX INJ SAME DRUG PULLING UNIT OPERATOR completed 08/31/13 TX/PRO/DX INJ SAME DRUG PULLING UNIT OPERATOR completed 08/31/13 TX/PRO/DX INJ SAME DRUG PULLING UNIT OPERATOR completed 08/31/13 THER/PROPH/DIAG INJ SC/IM completed 09/14/13 APPLICATION OF FINGER SPLINT completed 09/14/13 MARY MÉNDEZ MD Encounters Encounter Location Date/Time Departed Emergency Room [facility] 11/12/13 5:12pm Departed Emergency Room [facility] 09/14/13 1:20am Departed Emergency Room [facility] 08/31/13 8:07pm Recent Diagnosis
--- OUTSIDE RECORDS SUMMARY | 2016-06-12 15:37 | XMS REPORT | Continuity of Care Document ---
Author Author [facility] Organization [facility] Address Unknown Phone Unavailable Allergies Medications Problems Date Dx Coded Attending Type Code Diagnosis Diagnosed By 11/20/2011 Mateo Santos MD Admitting 724.2 LUMBAGO 11/20/2011 Mateo Santos MD Final 724.3 SCIATICA Procedures Results Encounters ACCT No. Visit Date/Time Discharge Status Pt. Type Provider Facility Loc./Unit Complaint [id number] 11/20/2011 10:57:00 2011 12:33:00 DIS Emergency Mateo Santos MD [facility]
--- OUTSIDE RECORDS SUMMARY | 2016-06-12 15:37 | XMS REPORT | Continuity of Care Document ---
Author Author [facility] Organization [facility] Address Unknown Phone Unavailable Care Team Providers Care Sorority Supervisor Name Role Phone LAUREN VALLE MD PP Unavailable Insurance Providers Payer Name Policy Number Subscriber Name Relationship [facility] [id number] Mariah Tinajero July 06 Self Problems No [...] Ds) 2 Tab PO BID Green Tea [place] Extract (Green Tea) 1 Cap PO [Ph [...] 2008 10:44pm 50-200 /HPF - Urine Specific [place] February 13, 2010 11:20pm 1.005 L - [...] Procedures Procedure Code Date CARPAL TUNNEL SURGERY 62173 07/10/08 REMOVE WRIST TENDON LESION 02759 07/10/08 APPLY FOREARM SPLINT 95499 11/04/09 THER/PROPH/DIAG INJ IV PUSH 93232 02/13/10 TX/PRO/DX INJ NEW DRUG ADDON 53978 02/13/10 TX/PRO/DX INJ SAME DRUG CONTRACT PARALEGAL 47694 02/13/10 Group A Streptococcus Culture 11/14/07 Urine Culture 07/25/08 Encounters Encounter Location Date/Time Departed Emergency Room [facility] 08/21/12 11:03pm Registered Emergency Room [facility] 11/14/07 9:22pm
[2016-06-12 15:38] VITALS: Ht 160 cm; Wt 102.2 kg
[2016-06-12] MEDS ORDERED: ACET-62 PO (15:48)
[2016-06-12] MEDS ORDERED: KETOROLAC 60mg/2ml INJECTION IM ONE (16:00)
--- NOTE | 2016-06-12 16:02 | NUR ---
XRAY IN ROOM
--- NOTE | 2016-06-12 16:21 | ERPDOC ---
Departure Disposition Decision Date: Jun 12, 2016 Disposition Decision Time: 17:19 Disposition: 01 DISCHARGED HOME, SELF-CARE Impression Impression Impression: Primary Impression: Left leg pain Severity: Mild Condition: Improved Seen By: Physician only Referrals: SAMM TANG (Family) 1 Day Patient Instructions: Leg Pain (ED) Problems/Meds/Labs Reviewed?: Yes Medications reviewed and manag: Yes Additional Instructions: 1. Rest, ICE, Elevate 2. Follow with your Doctor in 1-2 days 3. Return to the ER as needed Follow up care ordered?: Yes Mental Status: Alert, Oriented Scripts Meloxicam (Mobic) 7.5 Mg Tablet 1 TAB PO DAILY for ARTHRITIS, #20 0 Refills Prov: ELBA SARKAR DO 06/12/16 HPI - Lower Extremity General Chief Complaint: Lower Extremity Pain Stated Complaint: L LEG PAIN Time Seen by Provider: 15:40 Source: patient (Patient presents to the ER with LLE pain, without reported trauma. Apparently the patient has been experiencing intermittant pain for 2-3 months, but worsened over the past week. Patient states she was seen at the [facility] , who asked her to come to the ER for possible DVT) Exam Limitations: no limitations HPI - Lower Extremity Occurred At: home Onset/Timing: Changing over time Duration: 1 week Pain/Severity Scale: Now & Worst: 5/10 Severity: mild Pain/Injury Location: left leg Method of Injury: unknown Modifying Factors/Context: IMPROVES WITH: pain medication, WORSE WITH: movement Hx of Similar Symptoms: Yes Quality: aching, sharpness Allergies: Coded Allergies: procaine (Verified Adverse Reaction, Mild, WEARS OFF SLOW, 06/12/16) Past History Past Medical History Metabolic: cancer ENMT: dental problems Hx Echocardiogram: No GI: GERD, gallbladder disease Neurological: concussion Musculoskeletal: other Surgical History General: appendix, gallbladder, tonsils Reproductive/: hysterectomy Joint: carpal tunnel, hand Family History Family PMH: FOUND: [place], diabetes, hypertension Vaccines Hx Influenza Vaccination: No Hx Pneumococcal Vaccination: No Hx Tetanus, Diptheria, Pertuss: Yes (2010) Social History Does patient use chewing tobac: No Second Hand Exposure: No Substance Use Type: does not use Alcohol Intake: none, other Sexuality: male partner Service: No Current Occupational Status: employed Occupational Hazard: No Advance Directives: Yes Full Code Record Review Pertinent history updated: Yes Review of Systems Constitutional Constitutional: DENIES: chills, fever Eyes Lids/Accessories: DENIES: erythema, swelling ENMT Ears: DENIES: erythema, pain Balance: DENIES: ataxia, vertigo Sinuses: DENIES: congestion, rhinorrhea Mouth/Throat: DENIES: sore throat Cardiovascular Cardiac: DENIES: chest pain, dyspnea on exertion, orthopnea Rhythm/Rate: DENIES: tachycardia Pulmonary Respiratory: DENIES: cough, dyspnea, sputum GI Upper Abdomen: DENIES: nausea, pain, vomiting Lower Abdomen: DENIES: constipation, diarrhea, pain General: DENIES: dysuria Musculoskeletal General: joint pain, other (Fidel's Negative), pain, see HPI, tenderness, DENIES: cramps, joint swelling, weakness Integumentary Skin: DENIES: color change, itching, rash Neurological General: DENIES: ataxia, change in strength, headache, numbness, poor coordination, seizures, syncope, vertigo, weakness Psychiatric Psychiatric: DENIES: anxiety, depression, nervousness Hematologic/Lymphatic Hematologic/Lymphatic: DENIES: anemia Allergic/Immunological Allergic/Immunoligical: DENIES: sneezing All other Systems All Other Systems: Reviewed and Negative Physical Exam General General Nourishment: well nourished, well developed, appears stated age, adult General Body Habitus: well groomed Vitals and Pain First Documented Vital Signs Date Time Temp Pulse Resp B/P Pulse Ox O2 Delivery O2 Flow Rate FiO2 06/12/16 15:38 97.9 67 18 139/66 97 Room Air Weight: Kilograms: 102.200 Height (feet): 5 Height (inches): 3.00 Triage Pain Scale: RN VS reviewed by Provider: Yes Eyes (brief) Eyes Brief: found: EOMI, PERRL ENMT (brief) ENMT Brief: FOUND: mucosa moist Neck (brief) Neck: FOUND: trachea midline, NOT FOUND: tenderness, tracheal deviation Respiratory (brief) Respiratory: FOUND: clear all rose, equal bilaterally Cardiovascular (brief) Cardiac: FOUND: regular rate, regular rhythm Capillary Refill: <2 sec Pulses: all distal extremities, equal, strong Abdomen (brief) Abdominal Brief: FOUND: bowel normo active x4, soft, NOT FOUND: distended, tender Lymphatic (brief) Lymphatic Brief: NOT FOUND: adenopathy Musculoskeletal (brief) Musculoskeletal Brief: FOUND: other (Fidel's Negative), tenderness (Left Knee and Left Tib-Fib, without obvious trauma), NOT FOUND: deformity, loss of motion , spasm Fastrak Knee Knee : Knee: Left Inspection: NOT FOUND: discoloration, erythema, pallor, swelling Palpation: warm, NOT FOUND: tender lat. joint line, tender med. joint line, tender patella Stability: A/P cruciate (Intact), MCL intact, NOT FOUND: anterior drawer sign, posterior drawer sign ROM: extension to 180 degrees, flexion to 0 degrees Neuro: patellar tendon reflex ((+2)), soft touch intact, strength ((+5)) Posterior Tibial pulse: 2+ Dorsalis Pedis pulse: 2+ Integumentary (brief) Integumentary Brief: FOUND: pink, warm Neurologic (brief) Neurological Brief: FOUND: CN w/o gross def to obs, DTR 2/4 all extremities, gait w/o gross def to obs, motor-no gross deficits, sensory-no gross deficits, NOT FOUND: ataxia Psychiatric (brief) Psychiatric Brief: FOUND: alert, attentive, normal affect, oriented Differential Diagnoses Considering: Cartilage Tear, Contusion, Dislocation, DVT, Fracture, Ligament Tear ACL, Ligament Tear PCL, Meniscal Injury, Knee, Sprain, Strain, Trauma, Other Progress Results/Orders Orders Procedure Category Date Status Time Us Venous Duplex, US 06/12/16 Logged Lower Ext Lt Tib-Fib Left 2 View RAD 06/12/16 Resulted Knee Left 3 Views RAD 06/12/16 Resulted Ketorolac (Toradol) PHA 06/12/16 Complete 16:00 Medications Current ED Medications Ketorolac Tromethamine (Toradol) 60 mg O ONCE IM Last administered on t 16:04; Start 06/12/16 at 16:00; Stop 06/12/16 at 16:01; Status DC Progress Progress Patient refused MARCIA bandage or Crutches Will follow with her PCP, returning to the ER with worsening symptoms Xray Xray #1: Reason for Exam: Left Tib-Fib Pain Xray: Tibia/Fibula L Interpretation: Normal, Reviewed Written Report Xray #2: Reason for Exam: Left Knee pain Xray: Knee L Interpretation: Normal (No Fracture or Dislocation. Osteroarthritis noted) , Reviewed Written Report Ultrasound US : Reason for Exam: LLE pain Ultrasound: Venous Doppler Interpretation: Normal, Faxed Report ELBA SARKAR DO Jun 12, 2016 16:21
--- NOTE | 2016-06-12 16:24 | DI ---
Indication: ITS.REASON: left lower leg pain PROCEDURE: TIB-FIB LEFT 2 VIEW: Encounter: Initial Comparison: 11/14/2013 Findings: There is no acute fracture, dislocation or malalignment identified. The mineralization and the alignment appear well preserved. No soft tissue mass or abnormal calcification. No radiopaque foreign body. Impression: No acute osseous abnormality. No definite radiopaque foreign body. .
--- NOTE | 2016-06-12 16:25 | DI ---
Indication: ITS.REASON: left knee pain PROCEDURE: KNEE LEFT 3 VIEWS: Encounter: Initial Comparison: None Findings: There is no acute fracture, dislocation or malalignment identified. There is moderate osteophytic spur formation from the medial femoral condyle with relative sparing of the lateral femoral condyle and patellofemoral joint compartment. There is no definite effusion. The mineralization and the alignment appear well preserved. Impression: No acute osseous abnormality. 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 .
--- NOTE | 2016-06-12 16:41 | NUR ---
US IN PT ROOM
--- OUTSIDE RECORDS SUMMARY | 2016-06-12 16:54 | XMS REPORT | Continuity of Care Document ---
Author Author [facility] Organization [facility] Address Unknown Phone Unavailable Support Name Relationship Address Phone HIRA MEJIA MD Caregiver [address] [place] [phone] MARY MÉNDEZ MD Caregiver [address] [place] [address] [place] [phone] JENNIFER DEE Next Of Kin [address] [place] [address] Insurance Providers Payer Name Policy Number Subscriber Name Relationship [facility] [id number] Mariah Tinajero 18 Self Advance Directives Directive [...] Balance Med] 12/15/10 05/28/12 Discontinued Green Tea [place] Extract 1 Cap PO 12/15/10 05/28/12 Discontinued [...] F (96.8 - 99.1) Temperature (Calculated Celsius) 36.25881 degrees C (36.0 - 37.3) Pulse Rate [...] Has specimen been collected/obtained? Y Urine Specific [place] August 31, 2013 8:50pm >=1.030 H - [...] 21, 2013 9:47pm LAB TEST FORM REQUEST [id number] - EKG July 10, 2008 12:57pm Complete [...] Escherichia Coli Name: MARIAH TINAJERO Unit #: [id number] : 1975 Sex: F Loc / Svc: ED DOS: 08/31/13 Signed Report #: [id number] DIAGNOSTIC IMAGING REPORT TYPE OF EXAM: ABDOMEN [...] ADDON completed 08/31/13 TX/PRO/DX INJ SAME DRUG HOSPITAL FELLOW completed 08/31/13 TX/PRO/DX INJ SAME DRUG HOSPITAL FELLOW completed 08/31/13 TX/PRO/DX INJ SAME DRUG HOSPITAL FELLOW completed 08/31/13 Encounters Encounter Location Date/Time Registered Emergency Room [facility] 09/14/13 1:20am Departed Emergency Room [facility] 08/31/13 8:07pm Recent Diagnosis
--- OUTSIDE RECORDS SUMMARY | 2016-06-12 16:54 | XMS REPORT | Continuity of Care Document ---
Author Author [facility] Organization [facility] Address Unknown Phone Unavailable Care Team Providers Care Dentist Private Practice Name Role Phone LAUREN VALLE MD PP Unavailable Insurance Providers Payer Name Policy Number Subscriber Name Relationship [facility] [id number] Mariah Tinajero July 06 Self Problems No [...] Ds) 2 Tab PO BID Green Tea [place] Extract (Green Tea) 1 Cap PO [Ph Balance Med] Immunizations Name Given Type Hx Influenza Vaccination N H Hx Pneumococcal Vaccination N H Hx Tetanus, Diptheria, Pertussis Y 2010 H Response Recorded Date/Time Status not known Unknown Results No Known Relevant Diagnostic Tests, Laboratory Data and/or Discharge Summary. Procedures Procedure Code Date CARPAL TUNNEL SURGERY 09793 07/10/08 REMOVE WRIST TENDON LESION 95287 07/10/08 APPLY FOREARM SPLINT 89197 11/04/09 THER/PROPH/DIAG INJ IV PUSH 29294 02/13/10 TX/PRO/DX INJ NEW DRUG ADDON 72948 02/13/10 TX/PRO/DX INJ SAME DRUG RADIOLOGY PHYSICIAN 75776 02/13/10 Group A Streptococcus Culture 11/14/07 Urine Culture 07/25/08 Encounters Encounter Location Date/Time Departed Emergency Room [facility] 09/26/12 9:39pm Registered Emergency Room [facility] 11/14/07 9:22pm
--- OUTSIDE RECORDS SUMMARY | 2016-06-12 16:55 | XMS REPORT | Continuity of Care Document ---
Author Author [facility] Organization [facility] Address Unknown Phone Unavailable Allergies Medications Problems Date Dx Coded Attending Type Code Diagnosis Diagnosed By 11/20/2011 Mateo Santos MD Admitting 724.2 LUMBAGO 11/20/2011 Mateo Santos MD Final 724.3 SCIATICA Procedures Results Encounters ACCT No. Visit Date/Time Discharge Status Pt. Type Provider Facility Loc./Unit Complaint [id number] 11/20/2011 10:57:00 2011 12:33:00 DIS Emergency Mateo Santos MD [facility]
--- OUTSIDE RECORDS SUMMARY | 2016-06-12 16:55 | XMS REPORT | Continuity of Care Document ---
Author Author [facility] Organization [facility] Address Unknown Phone Unavailable Care Team Providers Care Colloid Mill Operator Name Role Phone LAUREN VALLE MD PP Unavailable Insurance Providers Payer Name Policy Number Subscriber Name Relationship [facility] [id number] Mariah Tinajero July 06 Self Problems No [...] Ds) 2 Tab PO BID Green Tea [place] Extract (Green Tea) 1 Cap PO [Ph [...] 2008 10:44pm 50-200 /HPF - Urine Specific [place] February 13, 2010 11:20pm 1.005 L - [...] Procedures Procedure Code Date CARPAL TUNNEL SURGERY 95679 07/10/08 REMOVE WRIST TENDON LESION 52762 07/10/08 APPLY FOREARM SPLINT 27484 11/04/09 THER/PROPH/DIAG INJ IV PUSH 62349 02/13/10 TX/PRO/DX INJ NEW DRUG ADDON 40433 02/13/10 TX/PRO/DX INJ SAME DRUG CREATIVE COORDINATOR 41259 02/13/10 Group A Streptococcus Culture 11/14/07 Urine Culture 07/25/08 Encounters Encounter Location Date/Time Departed Emergency Room [facility] 08/21/12 11:03pm Registered Emergency Room [facility] 11/14/07 9:22pm
--- OUTSIDE RECORDS SUMMARY | 2016-06-12 16:55 | XMS REPORT | Continuity of Care Document ---
Author Author [facility] Organization [facility] Address Unknown Phone Unavailable Support Name Relationship Address Phone RICK LIVINGSTON MD Caregiver [facility] [address] [place] [address] Unavailable HIRA MEJIA MD Caregiver [address] [place] [address] JENNIFER DEE Next Of Kin [address] [place] [address] Insurance Providers Payer Name Policy Number Subscriber Name Relationship [facility] [id number] Mariah Tinajero 18 Self Advance Directives Directive [...] Balance Med] 12/15/10 05/28/12 Discontinued Green Tea [place] Extract 1 Cap PO 12/15/10 05/28/12 Discontinued [...] F (96.8 - 99.1) Temperature (Calculated Celsius) 35.58200 degrees C (36.0 - 37.3) Pulse Rate [...] Has specimen been collected/obtained? Y Urine Specific [place] August 31, 2013 8:50pm >=1.030 H - [...] 21, 2013 9:47pm LAB TEST FORM REQUEST [id number] - EKG July 10, 2008 12:57pm Complete [...] Encounters Encounter Location Date/Time Departed Emergency Room [facility] 08/31/13 8:07pm Recent Diagnosis
--- OUTSIDE RECORDS SUMMARY | 2016-06-12 16:55 | XMS REPORT | Continuity of Care Document ---
Author Author [facility] Organization [facility] Address Unknown Phone Unavailable Support Name Relationship Address Phone ELBA SARKAR DO Caregiver [facility] [address] [place] [phone] NOEL SAN CLINICAL STAFF ANESTHESIOLOGIST Caregiver [address] [place] [address] [phone] LEILAJENNIFER Next Of Kin [address] [place] [address] Insurance Providers Payer Name Policy Number Subscriber Name Relationship [facility] [id number] Mariah Tinajero 18 Self Advance Directives Directive [...] Balance Med] 12/15/10 05/28/12 Discontinued Green Tea [place] Extract 1 Cap PO 12/15/10 05/28/12 Discontinued [...] F (96.8 - 99.1) Temperature (Calculated Celsius) 36.31639 degrees C (36.0 - 37.3) Pulse Rate [...] Has specimen been collected/obtained? Y Urine Specific [place] August 31, 2013 8:50pm >=1.030 H - [...] 21, 2013 9:47pm LAB TEST FORM REQUEST [id number] - EKG July 10, 2008 12:57pm Complete [...] Escherichia Coli Name: MARIAH TINAJERO Unit #: [id number] : 1975 Sex: F Loc / Svc: ED DOS: 04/17/14 Signed Report #: [id number] DIAGNOSTIC IMAGING REPORT TYPE OF EXAM: LUMBAR [...] Encounters Encounter Location Date/Time Departed Emergency Room [facility] 04/21/14 7:45am Departed Emergency Room [facility] 04/17/14 10:55pm Recent Diagnosis
--- OUTSIDE RECORDS SUMMARY | 2016-06-12 16:55 | XMS REPORT | Continuity of Care Document ---
Author Author [facility] Organization [facility] Address Unknown Phone Unavailable Support Name Relationship Address Phone HIRA MEJIA MD Caregiver [address] [place] [phone] MARY MÉNDEZ MD Caregiver [address] [place] [address] [place] [phone] JENNIFER DEE Next Of Kin [address] [place] [address] Insurance Providers Payer Name Policy Number Subscriber Name Relationship [facility] [id number] Mariah Tinajero 18 Self Advance Directives Directive [...] Balance Med] 12/15/10 05/28/12 Discontinued Green Tea [place] Extract 1 Cap PO 12/15/10 05/28/12 Discontinued [...] F (96.8 - 99.1) Temperature (Calculated Celsius) 37.44984 degrees C (36.0 - 37.3) Pulse Rate [...] Has specimen been collected/obtained? Y Urine Specific [place] August 31, 2013 8:50pm >=1.030 H - [...] 21, 2013 9:47pm LAB TEST FORM REQUEST [id number] - EKG July 10, 2008 12:57pm Complete [...] Escherichia Coli Name: MARIAH TINAJERO Unit #: [id number] : 1975 Sex: F Loc / Svc: ED DOS: 09/14/13 Signed Report #: [id number] DIAGNOSTIC IMAGING REPORT TYPE OF EXAM: HAND [...] ADDON completed 08/31/13 TX/PRO/DX INJ SAME DRUG COAL HAULER completed 08/31/13 TX/PRO/DX INJ SAME DRUG COAL HAULER completed 08/31/13 TX/PRO/DX INJ SAME DRUG COAL HAULER completed 08/31/13 THER/PROPH/DIAG INJ SC/IM completed 09/14/13 APPLICATION OF FINGER SPLINT completed 09/14/13 MARY MÉNDEZ MD Encounters Encounter Location Date/Time Departed Emergency Room [facility] 11/12/13 5:12pm Departed Emergency Room [facility] 09/14/13 1:20am Departed Emergency Room [facility] 08/31/13 8:07pm Recent Diagnosis
--- OUTSIDE RECORDS SUMMARY | 2016-06-12 16:55 | XMS REPORT | Continuity of Care Document ---
Author Author [facility] Organization [facility] Address Unknown Phone Unavailable Support Name Relationship Address Phone ELBA SARKAR DO Caregiver [facility] [address] [place], [place] [phone] HIRA MEJIA MD Caregiver [address] [place] [address] JENNIFER DEE Next Of Kin [address] [place] [address] Insurance Providers Payer Name Policy Number Subscriber Name Relationship [facility] [id number] Mariah Tinajero 18 Self Advance Directives Directive [...] Balance Med] 12/15/10 05/28/12 Discontinued Green Tea [place] Extract 1 Cap PO 12/15/10 05/28/12 Discontinued [...] F (96.8 - 99.1) Temperature (Calculated Celsius) 36.69161 degrees C (36.0 - 37.3) Pulse Rate [...] Has specimen been collected/obtained? Y Urine Specific [place] August 31, 2013 8:50pm >=1.030 H - [...] 21, 2013 9:47pm LAB TEST FORM REQUEST [id number] - EKG July 10, 2008 12:57pm Complete [...] Escherichia Coli Name: MARIAH TINAJERO Unit #: [id number] : 1975 Sex: F Loc / Svc: ED DOS: 11/12/13 Signed Report #: [id number] DIAGNOSTIC IMAGING REPORT TYPE OF EXAM: FOOT [...] ADDON completed 08/31/13 TX/PRO/DX INJ SAME DRUG SUBSTANCE ABUSE TECHNICIAN completed 08/31/13 TX/PRO/DX INJ SAME DRUG SUBSTANCE ABUSE TECHNICIAN completed 08/31/13 TX/PRO/DX INJ SAME DRUG SUBSTANCE ABUSE TECHNICIAN completed 08/31/13 THER/PROPH/DIAG INJ SC/IM completed 09/14/13 APPLICATION OF FINGER SPLINT completed 09/14/13 MARY MÉNDEZ MD Encounters Encounter Location Date/Time Departed Emergency Room [facility] 11/14/13 7:33pm Departed Emergency Room [facility] 11/12/13 5:12pm Departed Emergency Room [facility] 09/14/13 1:20am Departed Emergency Room [facility] 08/31/13 8:07pm Recent Diagnosis
--- OUTSIDE RECORDS SUMMARY | 2016-06-12 16:56 | XMS REPORT | Continuity of Care Document ---
Author Author LIVE Organization LIVE Address Unknown Phone Unavailable Support Name Relationship Address Phone HIRA MEJIA MD Caregiver [address] [place] [phone] NOEL SAN APRN Caregiver [address] [place] [address] [phone] SHAUN MONDRAGON MD Caregiver [address] [place] [address] [place] [phone] JENNIFER DEE Next Of Kin [address] [place], [place] [phone] Insurance Providers Payer Name Policy Number Subscriber Name Relationship [facility] [id number] Mariah Tinajero 18 Self Advance Directives Directive [...] Balance Med] 12/15/10 05/28/12 Discontinued Green Tea [place] Extract 1 Cap PO 12/15/10 05/28/12 Discontinued [...] F (96.8 - 99.1) Temperature (Calculated Celsius) 35.06747 degrees C (36.0 - 37.3) Pulse Rate [...] Has specimen been collected/obtained? Y Urine Specific [place] August 31, 2013 8:50pm >=1.030 H - [...] 21, 2013 9:47pm LAB TEST FORM REQUEST [id number] - EKG July 10, 2008 12:57pm Complete [...] Encounters Encounter Location Date/Time Registered Emergency Room [facility] 04/17/14 10:55pm Recent Diagnosis
[2016-06-12] MEDS ORDERED: MELO7.5T12 PO (17:22)
[2016-06-12 17:38] VITALS: BP 139/66; PULSE 67; RESP 18; TEMP 97.9; O2SAT 97
--- NOTE | 2016-06-13 08:19 | DI ---
Indication: ITS.REASON: LLE PAIN PROCEDURE: US VENOUS DUPLEX, LOWER EXT LT: Encounter: Initial Comparison: None Technique: Color Doppler duplex and grayscale sonographic imaging of the left lower extremity was performed. Findings: There is no evidence for acute deep venous thrombosis in the left thigh. Specifically, serial graded compression was performed from the inguinal ligament to the popliteal bifurcation, on the left thigh, demonstrating appropriate compressibility of the deep venous system. In addition, color and pulsed Doppler demonstrate appropriate spontaneous flow, variation with respiration, and augmentation with calf compression. At the ankle, normal flow is identified in the posterior tibial veins; these vessels are also normal in caliber. Impression: No evidence of acute DVT in the left lower limb. There is a preliminary report by virtual radiologic. .
== END 2016-06-12 17:38 | disposition home or self-care (01) ==
LOC: ED 15:31
DX: M79.662 Pain in left lower leg (principal); M25.562 Pain in left knee
CPT/HCPCS: 73562; 73590; 93971; 96372; 99284; J1885